=== PATIENT | male | born 1975 | race Caucasian/White ===

== ENCOUNTER 2016-07-06 18:21 | Emergency (ER) | payer SELFPAY ==
[2016-07-06 18:24] VITALS: BP 138/85; BMI 41.5
--- NOTE | 2016-07-06 19:03 | DR.GENAD ---
HPI - PCP Primary Care Physician: NFD - Complaint/Symptoms Chief Complaint Doctors Comments: Patient states that his umbilicus has been bleeding for several years serous fluid but now there is blood. He denies pain Chief Complaint:: PATIENT STATED THAT HIS BUTTON HAS BEEN BLEEDING TODAY - Source History Provided: Patient - Mode of Arrival Mode of Arrival: Ambulatory - Timing Onset of Chief Complaint: 07/06/16 PMH - PMH Past Medical History: No Past Surgical History: No Surgical History: No History - Family History History of Family Medical Conditions: Yes Family Medical History: Hypertension - Social History Does any household member use tobacco: No Alcohol Use: Rarely Do you use any recreational Drugs:: No Lives With: Family Lives Where: Home - infectious screening In the last 2 months have you had wt loss of >10#?: NO Have you had fever, night sweats or hemotysis?: No Have you traveled outside the country in the last 6 months?: No Isolation: Standard ROS - Review of Systems Eyes: No Symptoms Reported ENTM: No Symptoms Reported Respiratoy: No Symptoms Reported Cardiovascular: No Symptoms Reported Gastrointestinal/Abdominal: No Symptoms Reported Genitourinary: No Symptoms Reported Neurological: No Symptoms Reported Musculoskeletal: No Symptoms Reported Integumentary: No Symptoms Reported, Other (umbilicus drainage) Hematologic/Lymphatic: No Symptoms Reported Endocrine: No Symptoms Reported Psychiatric: No Symptoms Reported All Other Systems: Reviewed and Negative PE - Vital Signs Vitals: Temperature 98.2 F Pulse Rate 86 Respiratory Rate 20 Blood Pressure 138/85 O2 Sat by Pulse Oximetry 97 - General Limitations: No Limitations General Appearance: Alert, In No Apparent Distress - Head Head Exam: Normal Inspection, Atraumatic - Eyes Eye exam: Normal Appearance, PERRL, EOMI - ENT ENT Exam: Normal Exam External Ear Exam: Normal External Inspection TM/Canal Exam: Bilateral Normal Nose Exam: Normal Nose Exam Mouth Exam: Normal Inspection Throat Exam: Normal Inspection - Neck Neck Exam: Normal Inspection - Chest Chest Inspection: Normal Inspection - Respiratory Respiratory Exam: Normal Lung Sounds Bilat Respiratory Exam: Bilateral Clear to Auscultation - Cardiovascular Cardiovascular Exam: Regular Rate - Abdominal Exam Abdominal Exam: Normal Inspection Abdominal Tenderness: Other (drainage from umbilicus). negative: RUQ, RLQ, LUQ , LLQ, Epigastrium, Suprapubic, Diffuse, Mild, Moderate, Severe - Extremities Extremities Exam: Normal Inspection, Full ROM - Back Back Exam: Normal Inspection - Neurologic Neurological Exam: Alert, Oriented X3, CN II-XII Intact - Psychiatric Psychiatric Exam: Normal Affect, Normal Mood - Skin Skin Exam: Warm, Dry, Intact Procedures - Procedure Comments Procedures: Silver Nitrate sticks x 3 to umbilicus - Diagnosis Discharge Problem: Patent urachus - Discharge Plan Condition: Stable - Follow ups/Referrals Follow ups/Referrals: NFD,None [Primary Care Provider] - 3 days - Instructions
[2016-07-06] MEDS ORDERED: SILVER NITRATE STICK APPL TOP STA (19:07)
[2016-07-06] MEDS ORDERED: SILVER NITRATE STICK APPL ONE (19:08)
== END 2016-07-06 19:48 | disposition home or self-care (01) ==
LOC: ER 18:41
DX: Q64.4 Malformation of urachus (principal)
CPT/HCPCS: 99282

== ENCOUNTER 2020-11-05 21:40 | Inpatient (IN) ==
[2020-11-05 22:28] VITALS: BMI 50.2
[2020-11-06] MEDS ORDERED: TYLENOL 325 MG TAB PO ONE ×2 (01:21→21:27)
[2020-11-06 01:27] LABS: ABG BASE EXCESS 6.7 mmol/L (-2.0-2.0)
[2020-11-06 01:28] LABS: ABG ALLEN TEST POS; ABG HCO3 30.4 mmol/L (22-26)
[2020-11-06] MEDS: TYLENOL 325 MG TAB PO PRN ×2 (01:38→21:38)
--- NOTE | 2020-11-06 01:41 | DR.GENAD ---
HPI Time Seen Time Seen by Provider: 11/06/20 01:05 PCP Primary Care Physician: JAMAL HPI Comment HPI Comment: gradual symptoms, moderate Complaint/Symptoms Chief Complaint:: PT STATES" I TESTED POSITIVE MONDAY AT [facility] AND I'M BURING UP WITH FEVER AND A COUGH AND RUNNING OFF" Nurses notes reviewed Nurses Notes Review: Yes Source History Provided: Patient Mode of Arrival Mode of Arrival: Ambulatory Timing Onset of Chief Complaint: 11/05/20 PMH PMH Past Medical History: No Past Surgical History: No Surgical History: No History Family History History of Family Medical Conditions: Yes Family Medical History: Hypertension Social History Does patient currently use any type of tobacco product: No Have you used tobacco products in the last 12 months: No Type of Tobacco Use: None Does any household member use tobacco: No Alcohol Use: None Do you use any recreational Drugs:: No Lives With: Family Lives Where: Home Infectious screening In the last 2 months have you had wt loss of >10#?: NO Have you had fever, night sweats or hemotysis?: No Have you traveled outside the country in the last 6 months?: No Isolation: Droplet ROS Review of Systems Constitutional: Fever, Malaise and Fatigue Eyes: No Symptoms Reported ENTM: No Symptoms Reported Respiratoy: Non-Productive Cough and Short of Breath Cardiovascular: No Symptoms Reported Gastrointestinal/Abdominal: Diarrhea Genitourinary: No Symptoms Reported Neurological: No Symptoms Reported Musculoskeletal: No Symptoms Reported Integumentary: No Symptoms Reported Hematologic/Lymphatic: No Symptoms Reported Endocrine: No Symptoms Reported Psychiatric: No Symptoms Reported All Other Systems: Reviewed and Negative PE Vital Signs Vitals: Temperature 99.4 F Pulse Rate [Right] 95 Pulse Rate 100 Respiratory Rate 20 Blood Pressure [Left Arm] 134/75 Blood Pressure 128/79 O2 Sat by Pulse Oximetry 95 General Limitations: No Limitations General Appearance: Alert, In No Apparent Distress, Obese and Other (appears weak) Head Head Exam: Normal Inspection Eyes Eye exam: Normal Appearance ENT ENT Exam: Normal Exam External Ear Exam: Normal External Inspection TM/Canal Exam: Bilateral: Normal Nose Exam: Normal Nose Exam Mouth Exam: Normal Inspection Throat Exam: Normal Inspection Neck Neck Exam: Normal Inspection Chest Chest Inspection: Normal Inspection Respiratory Respiratory Exam: Normal Lung Sounds Bilat Respiratory Exam: Bilateral: Clear to Auscultation Cardiovascular Cardiovascular Exam: Regular Rate and Normal Rhythm Abdominal Exam Abdominal Exam: Normal Inspection, Normal Bowel Sounds and Soft Extremities Extremities Exam: Normal Inspection Back Back Exam: Normal Inspection Neurologic Neurological Exam: Alert and Oriented X3 Psychiatric Psychiatric Exam: Normal Affect and Normal Mood Skin Skin Exam: Warm, Dry, Intact and Normal Color MDM Differential Diagnosis Differential Diagnosis: covid COURSE Treatment Treatment: + covid, borderline hypoxia, will do protocol work-up for possible regen-cov, Reevaluation 1st: Unchanged (won't to leave, convinced get ABG hypoxic, does not qualify for regen-cov PO2 53, convinced to stay, will admit, give Remdesivir and decadron) 2nd: Unchanged (spoke with Broderick, will admit) Education/Counseling Education/Counseling: Patient, Education and Counseling Educated On: Treatment, Diagnosis and Prognosis ROR Labs Reviewed Result Diagrams: 11/06/20 01:46 11/06/20 01:46 Laboratory: WBC 8.7 X10^3/uL (3.6-10.0) 11/06/20 01:46 RBC 5.65 X10^6/uL (4.7-6.0) 11/06/20 01:46 Hgb 16.4 g/dL (13.5-18.0) 11/06/20 01:46 Hct 48.6 % (42.0-54.0) 11/06/20 01:46 MCV 86.0 fL (80.0-100.0) 11/06/20 01:46 MCH 29.0 pg (27.0-34.0) 11/06/20 01:46 MCHC 33.8 g/dL (33.0-35.0) 11/06/20 01:46 RDW 14.3 % (11.6-16.5) 11/06/20 01:46 Plt Count 142 X10^3/uL (150.0-450.0) L 11/06/20 01:46 MPV 8.0 fL (7.4-11.0) 11/06/20 01:46 Neut % (Auto) 85.1 % (42.0-75.0) H 11/06/20 01:46 Lymph % (Auto) 9.9 % (21.0-51.0) L 11/06/20 01:46 [place] % (Auto) 4.7 % (0.0-13.0) 11/06/20 01:46 Eos % (Auto) 0.0 % (0.9-2.9) L 11/06/20 01:46 Baso % (Auto) 0.3 % (0.2-1.0) 11/06/20 01:46 Neut # (Auto) 7.4 x10^3/uL (2.2-4.8) H 11/06/20 01:46 Lymph # (Auto) 0.9 X10^3/uL (1.3-2.9) L 11/06/20 01:46 [place] # (Auto) 0.4 x10^3/uL (0.3-0.8) 11/06/20 01:46 Eos # (Auto) 0.0 x10^3/uL (0.0-0.2) 11/06/20 01:46 Baso # (Auto) 0.0 X10^3/uL (0.0-0.1) 11/06/20 01:46 Absolute Nucleated RBC 0.1 /100WBC 11/06/20 01:46 D-Dimer 0.67 ug/ml (0.0-0.57) H* 11/06/20 01:46 Sample Site Lrad 11/06/20 01:20 ABG pH 7.500 (7.35-7.45) H 11/06/20 01:20 ABG pCO2 39.0 mmHg (35.0-45.0) 11/06/20 01:20 ABG pO2 53.0 mmHg (80.0-100.0) L 11/06/20 01:20 ABG HCO3 30.4 mmol/L (22-26) H* 11/06/20 01:20 ABG O2 Saturation 90.0 % (90-100) 11/06/20 01:20 ABG Base Excess 6.7 mmol/L (-2.0-2.0) H 11/06/20 01:20 Florentino Test Pos 11/06/20 01:20 A-a Gradient 48.0 mmHg 11/06/20 01:20 FiO2 21.0 11/06/20 01:20 Blood Gas Comments Margaret well ah 11/06/20 01:20 Sodium 136 mmol/L (136-145) 11/06/20 01:46 Corrected Sodium 137 mmol/L (136-145) 11/06/20 01:46 Potassium 3.8 mmol/L (3.5-5.1) 11/06/20 01:46 Chloride 97 mmol/L (98-107) L 11/06/20 01:46 Carbon Dioxide 27.4 mmol/L (21-32) 11/06/20 01:46 BUN 15 mg/dL (7-18) 11/06/20 01:46 Creatinine 1.23 mg/dL (0.70-1.30) 11/06/20 01:46 Est GFR (MDRD) Af Amer > 60 (>60) 11/06/20 01:46 Est GFR (MDRD) Non-Af > 60 (>60) 11/06/20 01:46 Glucose 121 mg/dL (65-99) H 11/06/20 01:46 Calcium 7.9 mg/dL (8.5-10.1) L 11/06/20 01:46 Corrected Calcium TNP 11/06/20 01:46 Ferritin 425 ng/mL (26-388) H 11/06/20 01:46 Total Bilirubin 0.60 mg/dL (0.2-1.0) 11/06/20 01:46 AST 81 Units/L (15-37) H 11/06/20 01:46 ALT 80 Units/L (12-78) H 11/06/20 01:46 Alkaline Phosphatase 86 Units/L (46-116) 11/06/20 01:46 Creatine Kinase 308 Units/L (39-308) 11/06/20 01:46 CK-MB (CK-2) < 1.0 ng/mL (0-4.0) 11/06/20 01:46 CK/CKMB % Calc 0.3 % (<4) 11/06/20 01:46 Troponin I < 0.02 ng/mL (0-1.5) 11/06/20 01:46 C-Reactive Protein 54.60 mg/L (0-3.0) H 11/06/20 01:46 B-Natriuretic Peptide < 5.0 pg/mL (0-79) 11/06/20 01:46 Total Protein 7.7 g/dL (6.4-8.2) 11/06/20 01:46 Albumin 3.5 g/dL (3.4-5.0) 11/06/20 01:46 Globulin 4.2 g/dL (2.5-4.5) 11/06/20 01:46 Albumin/Globulin Ratio 0.8 Ratio (1.1-2.1) L 11/06/20 01:46 XRAY XRAY Interpreted by: Radiologist X-ray Results: NAP in chest EKG Rate: 111 Rhythm: ST Block: None Hypertrophy: None ST: Normal Opioid Opioid Risk Tool Age (Sylvester box if 16-45): Yes History of Preadolescent Sexual Abuse: No Total: 1 Total Score Risk Category: Low Risk Copyright: Brenden RODARTE predicting aberrant behaviors Diagnosis Discharge Problem: COVID-19, Hypoxia Pneumonia Qualifiers: Pneumonia type: due to unspecified organism Laterality: unspecified laterality Lung location: unspecified part of lung Qualified Code(s): J18.9 - Pneumonia, unspecified organism
[2020-11-06] MEDS ORDERED: DECADRON INJ IVP ONE (01:48)
[2020-11-06] MEDS ORDERED: REMDESIVIR 200 MG in NS 100 ML IV 140 ML IV ONE (01:49)
[2020-11-06 01:54] LABS: BASOPHILS % (AUTO) 0.3 % (0.2-1.0); HEMATOCRIT 48.6 % (42.0-54.0); HEMOGLOBIN 16.4 g/dL (13.5-18.0); LYMPHOCYTES # (AUTO) 0.9 X10^3/uL (1.3-2.9); LYMPHOCYTES % (AUTO) 9.9 % (21.0-51.0); MEAN CORPUSCULAR HGB CONC 33.8 g/dL (33.0-35.0); MONOCYTES # (AUTO) 0.4 x10^3/uL (0.3-0.8); MONOCYTES % (AUTO) 4.7 % (0.0-13.0); NEUTROPHILS # (AUTO) 7.4 x10^3/uL (2.2-4.8); NEUTROPHILS % (AUTO) 85.1 % (42.0-75.0); PLATELET COUNT 142 X10^3/uL (150.0-450.0); RED BLOOD COUNT 5.65 X10^6/uL (4.7-6.0); RED CELL DISTRIBUTION WIDTH 14.3 % (11.6-16.5); WHITE BLOOD COUNT 8.7 X10^3/uL (3.6-10.0)
[2020-11-06] MEDS ORDERED: DECADRON INJ ONE (02:04)
[2020-11-06] MEDS ORDERED: NS 250 ML IV 250 ML IV ONE ×2 (02:05→15:03)
[2020-11-06] MEDS ORDERED: REMDESIVIR IV ONE (02:05)
[2020-11-06 02:06] LABS: ALANINE AMINOTRANSFERASE 80 Units/L (12-78); ALBUMIN 3.5 g/dL (3.4-5.0); ALKALINE PHOSPHATASE 86 Units/L (46-116); ASPARTATE AMINO TRANSFERASE 81 Units/L (15-37); BLOOD UREA NITROGEN 15 mg/dL (7-18); CALCIUM 7.9 mg/dL (8.5-10.1); CARBON DIOXIDE 27.4 mmol/L (21-32); CHLORIDE 97 mmol/L (98-107); COR NA(FOR HYPERGLY) 137 mmol/L (136-145); CREATININE 1.23 mg/dL (0.70-1.30); SODIUM 136 mmol/L (136-145); TOTAL PROTEIN 7.7 g/dL (6.4-8.2); eGFR NON BLACK RACES > 60 (>60)
[2020-11-06 02:19] LABS: CKMB % 0.3 % (<4); CREATINE KINASE 308 Units/L (39-308); CREATINE KINASE MB < 1.0 ng/mL (0-4.0); TROPONIN I < 0.02 ng/mL (0-1.5)
--- NOTE | 2020-11-06 05:34 | RAD ---
PROCEDURE: Chest X-ray 1 View .HISTORY: COVID+ .TECHNIQUE: AP view .COMPARISON: None .TECHNICAL QUALITY: Satisfactory .FINDINGS:Normal size heart .Mediastinum and hilar regions show no masses or lymphadenopathy .Normal central vascularity .No pulmonary consolidation, masses, pleural fluid, or pneumothorax .No acute bony abnormality .IMPRESSION:No active cardiopulmonary disease .Electronically signed by: Jonathan Rivas (Nov 06, 2020 05:31:50)
[2020-11-06] MEDS ORDERED: PULMICORT NEB TX 0.5 MG NEB SCH (12:56)
[2020-11-06] MEDS ORDERED: PERIACTIN TAB 4 MG PO PRN (12:56)
[2020-11-06] MEDS ORDERED: VITAMIN D (1.25MG) PO SCH (12:56)
[2020-11-06] MEDS ORDERED: VITAMIN A PO SCH (12:56)
[2020-11-06] MEDS ORDERED: BROVANA IN SCH (12:56)
[2020-11-06] MEDS ORDERED: PHARMACY CONSULT - IVERMECTIN XX SCH (12:56)
[2020-11-06] MEDS ORDERED: PHARMACY CONSULT - LOVENOX XX SCH (12:56)
[2020-11-06 13:41] LABS: BASOPHILS % (AUTO) 0.1 % (0.2-1.0); HEMATOCRIT 47.3 % (42.0-54.0); HEMOGLOBIN 15.9 g/dL (13.5-18.0); LYMPHOCYTES # (AUTO) 0.7 X10^3/uL (1.3-2.9); LYMPHOCYTES % (AUTO) 13.6 % (21.0-51.0); MEAN CORPUSCULAR HEMOGLOBIN 28.8 pg (27.0-34.0); MEAN CORPUSCULAR HGB CONC 33.6 g/dL (33.0-35.0); MEAN CORPUSCULAR VOLUME 85.5 fL (80.0-100.0); MEAN PLATELET VOLUME 8.4 fL (7.4-11.0); MONOCYTES # (AUTO) 0.3 x10^3/uL (0.3-0.8); MONOCYTES % (AUTO) 5.5 % (0.0-13.0); NEUTROPHILS % (AUTO) 80.8 % (42.0-75.0); PLATELET COUNT 171 X10^3/uL (150.0-450.0); RED BLOOD COUNT 5.54 X10^6/uL (4.7-6.0); RED CELL DISTRIBUTION WIDTH 14.5 % (11.6-16.5)
[2020-11-06] MEDS ORDERED: LOVENOX INJ 150 MG SYR SC SCH (14:00)
[2020-11-06 14:20] LABS: ALANINE AMINOTRANSFERASE 139 Units/L (12-78); ALBUMIN 3.2 g/dL (3.4-5.0); ALKALINE PHOSPHATASE 88 Units/L (46-116); ASPARTATE AMINO TRANSFERASE 143 Units/L (15-37); BLOOD UREA NITROGEN 17 mg/dL (7-18); CHLORIDE 98 mmol/L (98-107); COR CA(FOR HYPOALB) 8.6 mg/dL (8.5-10.1); COR NA(FOR HYPERGLY) 137 mmol/L (136-145); CREATININE 1.15 mg/dL (0.70-1.30); SODIUM 136 mmol/L (136-145); TOTAL PROTEIN 7.5 g/dL (6.4-8.2); TROPONIN I < 0.02 ng/mL (0-1.5); eGFR NON BLACK RACES > 60 (>60)
[2020-11-06] MEDS ORDERED: CYTOTEC ONE ×2 (15:00→17:18)
[2020-11-06] MEDS ORDERED: THIAMINE HCL INJ ONE ×2 (15:00→20:35)
[2020-11-06] MEDS ORDERED: LOVENOX INJ 120 MG SYR SC ONE (15:00)
[2020-11-06] MEDS ORDERED: SOLU-Medrol 125 MG VIAL ONE ×2 (15:00→20:35)
[2020-11-06] MEDS ORDERED: LIPITOR TAB 80 MG ONE (15:01)
[2020-11-06] MEDS ORDERED: ZINC SULFATE ONE ×2 (15:01→20:35)
[2020-11-06] MEDS ORDERED: VITAMIN D3 125 mcg (5,000 UNITS) ONE (15:02)
[2020-11-06] MEDS ORDERED: ZITHROMAX INJ 500 MG VIAL IV ONE (15:02)
[2020-11-06] MEDS ORDERED: NS 100 ML IV 100 ML ONE ×3 (15:02→20:36)
[2020-11-06] MEDS ORDERED: LOVENOX INJ 30 MG SYR SC ONE (15:02)
[2020-11-06] MEDS ORDERED: NS 1000 ML 1,000 ML ONE (15:03)
[2020-11-06] MEDS ORDERED: ASCORBIC ACID INJ MULTI-DOSE VIAL IV ONE (15:04)
[2020-11-06] MEDS ORDERED: PEPCID 20 MG IV PREMIX* 40 MG/100 ML BAG IV ONE (15:04)
[2020-11-06] MEDS: ASCORBIC ACID INJ MULTI-DOSE VIAL 1,500 MG in NS 100 ML IV 100 ML IV SCH ×3 (16:10→21:22)
[2020-11-06] MEDS: CYTOTEC PO SCH ×4 (16:12→21:24)
[2020-11-06] MEDS: LIPITOR TAB 80 MG PO SCH (16:12)
[2020-11-06] MEDS: NS 1000 ML 1,000 ML IV SCH (16:13)
[2020-11-06] MEDS: PEPCID TAB 40 MG PO SCH ×2 (16:13→21:26)
[2020-11-06] MEDS: SOLU-Medrol 125 MG VIAL IVP SCH ×3 (16:14→21:23)
[2020-11-06] MEDS: PROTONIX INJ 40 MG VIAL IVP SCH ×2 (16:14→21:24)
[2020-11-06] MEDS: THIAMINE HCL INJ IVP SCH ×2 (16:15→21:23)
[2020-11-06] MEDS: ZINC SULFATE PO SCH ×2 (16:16→21:23)
[2020-11-06] MEDS: ZITHROMAX INJ 500 MG VIAL 500 MG in D5W 250 ML IV 250 ML IV SCH (16:16)
[2020-11-06] MEDS ORDERED: BROVANA ONE (19:19)
[2020-11-06] MEDS ORDERED: PULMICORT NEB TX 0.5 MG NEB ONE (19:19)
[2020-11-06] MEDS: BROVANA IN SCH (20:28)
[2020-11-06] MEDS: PULMICORT NEB TX 0.5 MG NEB SCH (20:28)
[2020-11-06] MEDS ORDERED: MELATONIN ONE (20:35)
[2020-11-06] MEDS ORDERED: PROTONIX INJ 40 MG VIAL ONE (20:36)
[2020-11-06] MEDS: MELATONIN PO SCH (21:24)
[2020-11-06] MEDS ORDERED: PEPCID TAB 40 MG ONE (21:25)
[2020-11-07] MEDS ORDERED: NS 100 ML IV 100 ML ONE ×2 (03:02→16:40)
[2020-11-07] MEDS: ASCORBIC ACID INJ MULTI-DOSE VIAL 1,500 MG in NS 100 ML IV 100 ML IV SCH ×4 (03:05→21:00)
[2020-11-07] MEDS ORDERED: SOLU-Medrol 125 MG VIAL ONE ×2 (03:29→08:13)
[2020-11-07] MEDS: SOLU-Medrol 125 MG VIAL IVP SCH ×4 (03:30→21:00)
[2020-11-07] MEDS ORDERED: NS 1000 ML 1,000 ML ONE (06:21)
[2020-11-07] MEDS: LOVENOX INJ 150 MG SYR SC SCH ×3 (06:28→21:00)
[2020-11-07] MEDS: NS 1000 ML 1,000 ML IV SCH ×2 (06:30→12:55)
[2020-11-07] MEDS ORDERED: PEPCID TAB 40 MG ONE (08:13)
[2020-11-07] MEDS ORDERED: NS 250 ML IV 250 ML IV ONE ×2 (08:14→08:20)
[2020-11-07] MEDS ORDERED: NS 50 ML IV 50 ML IV ONE ×2 (08:14→13:22)
[2020-11-07] MEDS ORDERED: REMDESIVIR IV ONE (08:14)
[2020-11-07] MEDS ORDERED: ASCORBIC ACID INJ MULTI-DOSE VIAL IV ONE ×2 (08:14→13:22)
[2020-11-07] MEDS ORDERED: ZITHROMAX INJ 500 MG VIAL IV ONE (08:20)
[2020-11-07] MEDS ORDERED: THIAMINE HCL INJ ONE (08:20)
[2020-11-07] MEDS ORDERED: ZINC SULFATE ONE (08:24)
[2020-11-07] MEDS ORDERED: IVERMECTIN ONE (08:53)
[2020-11-07] MEDS ORDERED: PEPCID 20 MG IV PREMIX* 20 MG/50 ML BAG IV ONE (08:55)
[2020-11-07] MEDS: CYTOTEC PO SCH (08:57)
[2020-11-07] MEDS: REMDESIVIR 100 MG in NS 250 ML IV 250 ML IV SCH (08:58)
[2020-11-07] MEDS ORDERED: IVERMECTIN PO SCH (09:00)
[2020-11-07] MEDS: PEPCID TAB 40 MG PO SCH ×2 (09:02→21:00)
[2020-11-07] MEDS: THIAMINE HCL INJ IVP SCH ×2 (09:05→21:00)
[2020-11-07] MEDS: ZINC SULFATE PO SCH ×2 (09:06→21:00)
[2020-11-07] MEDS ORDERED: LIPITOR TAB 80 MG ONE (09:07)
[2020-11-07] MEDS ORDERED: PROTONIX INJ 40 MG VIAL ONE (09:07)
[2020-11-07] MEDS: LIPITOR TAB 80 MG PO SCH (09:09)
[2020-11-07] MEDS: ZITHROMAX INJ 500 MG VIAL 500 MG in D5W 250 ML IV 250 ML IV SCH (09:13)
[2020-11-07] MEDS: PROTONIX INJ 40 MG VIAL IVP SCH (09:13)
[2020-11-07] MEDS: BROVANA IN SCH ×2 (10:05→21:00)
[2020-11-07] MEDS: PULMICORT NEB TX 0.5 MG NEB SCH ×2 (10:05→21:00)
[2020-11-07 10:51] LABS: BASOPHILS % (AUTO) 0.3 % (0.2-1.0); HEMATOCRIT 49.3 % (42.0-54.0); HEMOGLOBIN 16.4 g/dL (13.5-18.0); LYMPHOCYTES # (AUTO) 1.4 X10^3/uL (1.3-2.9); LYMPHOCYTES % (AUTO) 16.9 % (21.0-51.0); MEAN CORPUSCULAR HEMOGLOBIN 28.8 pg (27.0-34.0); MEAN CORPUSCULAR HGB CONC 33.3 g/dL (33.0-35.0); MEAN CORPUSCULAR VOLUME 86.6 fL (80.0-100.0); MEAN PLATELET VOLUME 8.4 fL (7.4-11.0); MONOCYTES # (AUTO) 0.4 x10^3/uL (0.3-0.8); MONOCYTES % (AUTO) 5.3 % (0.0-13.0); NEUTROPHILS # (AUTO) 6.2 x10^3/uL (2.2-4.8); NEUTROPHILS % (AUTO) 77.5 % (42.0-75.0); PLATELET COUNT 196 X10^3/uL (150.0-450.0); RED BLOOD COUNT 5.69 X10^6/uL (4.7-6.0); RED CELL DISTRIBUTION WIDTH 14.3 % (11.6-16.5)
[2020-11-07 11:00] LABS: ALANINE AMINOTRANSFERASE 170 Units/L (12-78); ALBUMIN 3.3 g/dL (3.4-5.0); ALKALINE PHOSPHATASE 82 Units/L (46-116); ASPARTATE AMINO TRANSFERASE 129 Units/L (15-37); BLOOD UREA NITROGEN 19 mg/dL (7-18); CALCIUM 8.2 mg/dL (8.5-10.1); CARBON DIOXIDE 28.7 mmol/L (21-32); CHLORIDE 100 mmol/L (98-107); COR CA(FOR HYPOALB) 8.8 mg/dL (8.5-10.1); COR NA(FOR HYPERGLY) 142 mmol/L (136-145); CREATININE 1.28 mg/dL (0.70-1.30); SODIUM 139 mmol/L (136-145); TOTAL PROTEIN 7.6 g/dL (6.4-8.2); eGFR NON BLACK RACES > 60 (>60)
[2020-11-07] MEDS ORDERED: HumuLIN R SUBCUT PRN (12:22)
[2020-11-07] MEDS ORDERED: HumuLIN R ONE (12:49)
[2020-11-07] MEDS ORDERED: SOLU-Medrol 40 MG VIAL ONE (13:22)
--- NOTE | 2020-11-07 16:34 | PCM.PROG ---
Progress Note Progress Note for Day of Date of Exam: 11/07/20 Subjective Subjective: Patient seen at bedside, no acute events overnight. Patient states he feels a lot better. He is currently being treated for covid-19 infection. He is on 4L NC. He reports some cough. Denies fever or chills. Denies N/V/D. Labs: WBC: 8 Hgb 16.4 Plt 171 BUN/Cr: 19/1.28 Glucose 219 D-dimer 0.67 CRP: 21.50 AST/ALT: 129/170 AB.50/39/53/30 on RA COVID + CXR: no acute process Plan: continue COVID-19 protocol. Continue IV solumedrol, Remdesivir, will switch Azithromycin to Levaquin. Order CTA to rule out PE. Wean O2 as tolerated to keep sats >92%. Continue nebs and pulmicort. Continue vitamin support. Monitor AM labs/imaging. Patient needs a sleep study outpatient. Time spent for clinical assessment, reviewing labs/imaging, physical exam, decision making and documentation greater than 45 mins. Past Medical Family Social History Past Med/Fam/Surg Hx: No changes since H&P Allergies: Allergies Penicillins Allergy (Verified 07/07/19 07:45) ceftriaxone [From Rocephin] Adverse Reaction (Verified 07/07/19 12:12) Review of Systems ROS: No change since H&P Vital Signs and I&O's Vital Signs: Temperature 98.0 F Pulse Rate [Right] 100 Pulse Rate 92 Respiratory Rate 24 Blood Pressure [Left Arm] 129/79 Blood Pressure 128/79 O2 Sat by Pulse Oximetry 90 Intake and Output: Intake & Output 11/04/20 11/05/20 11/06/20 11/07/20 23:59 23:59 23:59 23:59 Intake Total 1505 / 1505 310 / 310 Balance 1505 / 1505 310 / 310 Physical Exam Oriented: Normal Eyes: Normal Ear: Normal Nose: Normal Throat: Normal Respiratory: Generalized and Diminished Cardiovascular: Normal Auscultation: Bowel Sounds: Normal Palpation: Normal Tenderness: Normal Skin: Normal Musculoskeletal: Normal Psychiatric: Normal Affect: Normal Speech Pattern: Clear and Appropriate Laboratory and Diagnostics Result Diagrams: 11/07/20 10:34 11/07/20 10:34 Labs: Laboratory WBC 8.0 X10^3/uL (3.6-10.0) 11/07/20 10:34 RBC 5.69 X10^6/uL (4.7-6.0) 11/07/20 10:34 Hgb 16.4 g/dL (13.5-18.0) 11/07/20 10:34 Hct 49.3 % (42.0-54.0) 11/07/20 10:34 MCV 86.6 fL (80.0-100.0) 11/07/20 10:34 MCH 28.8 pg (27.0-34.0) 11/07/20 10:34 MCHC 33.3 g/dL (33.0-35.0) 11/07/20 10:34 RDW 14.3 % (11.6-16.5) 11/07/20 10:34 Plt Count 196 X10^3/uL (150.0-450.0) 11/07/20 10:34 MPV 8.4 fL (7.4-11.0) 11/07/20 10:34 Neut % (Auto) 77.5 % (42.0-75.0) H 11/07/20 10:34 Lymph % (Auto) 16.9 % (21.0-51.0) L 11/07/20 10:34 [place] % (Auto) 5.3 % (0.0-13.0) 11/07/20 10:34 Eos % (Auto) 0.0 % (0.9-2.9) L 11/07/20 10:34 Baso % (Auto) 0.3 % (0.2-1.0) 11/07/20 10:34 Neut # (Auto) 6.2 x10^3/uL (2.2-4.8) H 11/07/20 10:34 Lymph # (Auto) 1.4 X10^3/uL (1.3-2.9) 11/07/20 10:34 [place] # (Auto) 0.4 x10^3/uL (0.3-0.8) 11/07/20 10:34 Eos # (Auto) 0.0 x10^3/uL (0.0-0.2) 11/07/20 10:34 Baso # (Auto) 0.0 X10^3/uL (0.0-0.1) 11/07/20 10:34 Absolute Nucleated RBC 0.1 /100WBC 11/07/20 10:34 D-Dimer 0.67 ug/ml (0.0-0.57) H* 11/06/20 01:46 Sample Site Lrad 11/06/20 01:20 ABG pH 7.500 (7.35-7.45) H 11/06/20 01:20 ABG pCO2 39.0 mmHg (35.0-45.0) 11/06/20 01:20 ABG pO2 53.0 mmHg (80.0-100.0) L 11/06/20 01:20 ABG HCO3 30.4 mmol/L (22-26) H* 11/06/20 01:20 ABG O2 Saturation 90.0 % (90-100) 11/06/20 01:20 ABG Base Excess 6.7 mmol/L (-2.0-2.0) H 11/06/20 01:20 Florentino Test Pos 11/06/20 01:20 A-a Gradient 48.0 mmHg 11/06/20 01:20 FiO2 21.0 11/06/20 01:20 Blood Gas Comments Margaret well ah 11/06/20 01:20 Sodium 139 mmol/L (136-145) 11/07/20 10:34 Corrected Sodium 142 mmol/L (136-145) 11/07/20 10:34 Potassium 3.7 mmol/L (3.5-5.1) 11/07/20 10:34 Chloride 100 mmol/L (98-107) 11/07/20 10:34 Carbon Dioxide 28.7 mmol/L (21-32) 11/07/20 10:34 BUN 19 mg/dL (7-18) H 11/07/20 10:34 Creatinine 1.28 mg/dL (0.70-1.30) 11/07/20 10:34 Est GFR (MDRD) Af Amer > 60 (>60) 11/07/20 10:34 Est GFR (MDRD) Non-Af > 60 (>60) 11/07/20 10:34 Glucose 218 mg/dL (65-99) H 11/07/20 10:34 POC Glucose (mg/dL) 219 mg/dL (65-99) H 11/07/20 12:04 Calcium 8.2 mg/dL (8.5-10.1) L 11/07/20 10:34 Corrected Calcium 8.8 mg/dL (8.5-10.1) 11/07/20 10:34 Ferritin 425 ng/mL (26-388) H 11/06/20 01:46 Total Bilirubin 0.50 mg/dL (0.2-1.0) 11/07/20 10:34 AST 129 Units/L (15-37) H 11/07/20 10:34 ALT 170 Units/L (12-78) H 11/07/20 10:34 Alkaline Phosphatase 82 Units/L (46-116) 11/07/20 10:34 Creatine Kinase 308 Units/L (39-308) 11/06/20 01:46 CK-MB (CK-2) < 1.0 ng/mL (0-4.0) 11/06/20 01:46 CK/CKMB % Calc 0.3 % (<4) 11/06/20 01:46 Troponin I < 0.02 ng/mL (0-1.5) 11/06/20 13:12 C-Reactive Protein 21.50 mg/L (0-3.0) H 11/07/20 10:34 B-Natriuretic Peptide < 5.0 pg/mL (0-79) 11/06/20 01:46 Total Protein 7.6 g/dL (6.4-8.2) 11/07/20 10:34 Albumin 3.3 g/dL (3.4-5.0) L 11/07/20 10:34 Globulin 4.3 g/dL (2.5-4.5) 11/07/20 10:34 Albumin/Globulin Ratio 0.8 Ratio (1.1-2.1) L 11/07/20 10:34 Plan (1) Acute respiratory failure with hypoxia: Status: Acute (2) Pneumonia due to COVID-19 virus: Status: Acute
--- NOTE | 2020-11-07 18:04 | CT ---
HISTORYCOVID, HYPOXIASTUDYCTA CHESTCOMPARISONChest radiograph, November 06, 2020TECHNIQUEAxial CT images of the chest were obtained after the administration of 75 mL Omnipaque 350 IV contrast utilizing a CTA protocol. 3D MIPS were performed and reviewed for further evaluation.Radiation dose: 752.50 mGy-cm total DLPFINDINGSTrace pericardial effusion.No mediastinal or hilar lymphadenopathy.Aorta is normal in caliber without dissection.Pulmonary arteries are normal in caliber without filling defects to suggest a pulmonary embolus.Airways are widely patent.Thyroid appears normal.No pleural effusion.Diffuse bilateral, largely peripheral, airspace opacities throughout the lung parenchyma.No pneumothorax.No concerning lung parenchymal lesion identified.Imaged portion of the upper abdomen is unremarkable.No acute osseous abnormality.IMPRESSION1. Diffuse bilateral, largely peripheral, airspace opacities throughout the lung parenchyma. Findings are consistent with the given history of a COVID-19 respiratory infection.2. No pulmonary embolus identified.Electronically signed by: Leoncio Montoya (Nov 07, 2020 18:02:25)
[2020-11-07] MEDS ORDERED: SNACK - Diabetic Appropriate PO SCH (20:00)
[2020-11-07] MEDS ORDERED: LOVENOX INJ 150 MG SYR SC SCH (21:00)
[2020-11-07] MEDS: MELATONIN PO SCH (21:00)
[2020-11-08] MEDS: ASCORBIC ACID INJ MULTI-DOSE VIAL 1,500 MG in NS 100 ML IV 100 ML IV SCH ×4 (03:14→20:32)
[2020-11-08] MEDS: SOLU-Medrol 125 MG VIAL IVP SCH ×4 (03:15→20:34)
[2020-11-08] MEDS: BROVANA IN SCH ×2 (09:25→21:25)
[2020-11-08] MEDS: PULMICORT NEB TX 0.5 MG NEB SCH ×2 (09:25→21:25)
[2020-11-08] MEDS: LEVAQUIN PREMIX IV 750 MG 750 MG/150 ML BAG IV SCH (10:05)
[2020-11-08] MEDS: LOVENOX INJ 150 MG SYR SC SCH ×2 (10:05→20:32)
[2020-11-08] MEDS: REMDESIVIR 100 MG in NS 250 ML IV 250 ML IV SCH (10:06)
[2020-11-08] MEDS: VITAMIN D3 125 mcg (5,000 UNITS) PO SCH (10:06)
[2020-11-08] MEDS: ZINC SULFATE PO SCH ×2 (10:06→20:34)
[2020-11-08] MEDS: THIAMINE HCL INJ IVP SCH (10:06)
[2020-11-08] MEDS: PEPCID TAB 40 MG PO SCH ×2 (10:06→20:33)
[2020-11-08] MEDS: VITAMIN A PO SCH (10:06)
[2020-11-08] MEDS: LIPITOR TAB 80 MG PO SCH (10:07)
[2020-11-08 11:27] LABS: BASOPHILS % (AUTO) 0.1 % (0.2-1.0); HEMOGLOBIN 15.4 g/dL (13.5-18.0); LYMPHOCYTES # (AUTO) 0.9 X10^3/uL (1.3-2.9); LYMPHOCYTES % (AUTO) 5.7 % (21.0-51.0); MEAN CORPUSCULAR HEMOGLOBIN 28.2 pg (27.0-34.0); MEAN CORPUSCULAR HGB CONC 32.8 g/dL (33.0-35.0); MEAN CORPUSCULAR VOLUME 86.2 fL (80.0-100.0); MONOCYTES # (AUTO) 0.8 x10^3/uL (0.3-0.8); NEUTROPHILS # (AUTO) 14.2 x10^3/uL (2.2-4.8); NEUTROPHILS % (AUTO) 89.2 % (42.0-75.0); PLATELET COUNT 229 X10^3/uL (150.0-450.0); RED BLOOD COUNT 5.45 X10^6/uL (4.7-6.0); RED CELL DISTRIBUTION WIDTH 14.4 % (11.6-16.5); WHITE BLOOD COUNT 15.9 X10^3/uL (3.6-10.0)
[2020-11-08 11:38] LABS: ALANINE AMINOTRANSFERASE 132 Units/L (12-78); ALBUMIN 3.2 g/dL (3.4-5.0); ALKALINE PHOSPHATASE 77 Units/L (46-116); ASPARTATE AMINO TRANSFERASE 89 Units/L (15-37); BLOOD UREA NITROGEN 16 mg/dL (7-18); CARBON DIOXIDE 28.5 mmol/L (21-32); CHLORIDE 102 mmol/L (98-107); COR CA(FOR HYPOALB) 8.6 mg/dL (8.5-10.1); COR NA(FOR HYPERGLY) 143 mmol/L (136-145); CREATININE 1.07 mg/dL (0.70-1.30); SODIUM 141 mmol/L (136-145); eGFR NON BLACK RACES > 60 (>60)
[2020-11-08] MEDS: NS 1000 ML 1,000 ML IV SCH (13:27)
[2020-11-08] MEDS ORDERED: MAGNESIUM SULFATE 1 GRAM/100 mL PREMIX 1 GM/100 ML BAG IV PRN (13:46)
[2020-11-08] MEDS ORDERED: POTASSIUM CHL 40 MEQ/NS 0.45% 500 ML IV PRN (13:46)
[2020-11-08] MEDS ORDERED: MICRO K EXTEN CAP 10 MEQ PO PRN (13:46)
[2020-11-08] MEDS ORDERED: POTASSIUM CHL 60 MEQ/NS 0.45% 500 ML IV PRN (13:46)
[2020-11-08] MEDS ORDERED: POTASSIUM CHLORIDE LIQ 20 MEQ UDC PO PRN (13:46)
[2020-11-08] MEDS ORDERED: K-RIDER 10 MEQ/NS 100 ML 10 MEQ/100 ML BAG IV PRN (13:46)
[2020-11-08] MEDS ORDERED: KLOR-CON PO PRN (13:46)
--- NOTE | 2020-11-08 15:33 | PCM.PROG ---
Progress Note Progress Note for Day of Date of Exam: 11/08/20 Subjective Subjective: Patient seen at bedside, no acute events overnight. He states he feels better. He is on 4L NC. He reports some cough. Denies fever or chills. He reports good appetite. He has been ambulating to the bathroom. Labs: WBC: 15.9 Hgb 15.4 Plt 229 K: 3.4 BUN/Cr: 16/1.07 Glucose 219 D-dimer 0.67 CRP: 21.50 AB.50/39/53/30 on RA COVID + CTA: no PE, diffuse bilateral opacities Plan: continue COVID-19 protocol. Continue IV solumedrol, Remdesivir and Levaquin. Wean O2 as tolerated to keep sats >92%. Continue nebs and pulmicort. Continue vitamin support. Replace K. Monitor AM labs/imaging. Patient needs a sleep study outpatient. Time spent for clinical assessment, reviewing labs/imaging, physical exam, decision making and documentation greater than 45 mins. Past Medical Family Social History Past Med/Fam/Surg Hx: No changes since H&P Allergies: Allergies Penicillins Allergy (Verified 07/07/19 07:45) ceftriaxone [From Rocephin] Adverse Reaction (Verified 07/07/19 12:12) Review of Systems ROS: No change since H&P Vital Signs and I&O's Vital Signs: Temperature 98.0 F Pulse Rate [Right] 95 Pulse Rate 84 Respiratory Rate 20 Blood Pressure [Left Arm] 110/68 Blood Pressure 128/79 O2 Sat by Pulse Oximetry 94 Intake and Output: Intake & Output 11/05/20 11/06/20 11/07/20 11/08/20 23:59 23:59 23:59 23:59 Intake Total 1505 / 1505 1030 / 1030 347 / 347 Balance 1505 / 1505 1030 / 1030 347 / 347 Physical Exam Oriented: Normal Eyes: Normal Ear: Normal Nose: Normal Throat: Normal Respiratory: Generalized and Diminished Cardiovascular: Normal Auscultation: Bowel Sounds: Normal Tenderness: Normal Skin: Normal Musculoskeletal: Normal Psychiatric: Normal Affect: Normal Speech Pattern: Clear and Appropriate Laboratory and Diagnostics Result Diagrams: 11/08/20 11:04 11/08/20 11:04 Labs: Laboratory WBC 15.9 X10^3/uL (3.6-10.0) H 11/08/20 11:04 RBC 5.45 X10^6/uL (4.7-6.0) 11/08/20 11:04 Hgb 15.4 g/dL (13.5-18.0) 11/08/20 11:04 Hct 47.0 % (42.0-54.0) 11/08/20 11:04 MCV 86.2 fL (80.0-100.0) 11/08/20 11:04 MCH 28.2 pg (27.0-34.0) 11/08/20 11:04 MCHC 32.8 g/dL (33.0-35.0) L 11/08/20 11:04 RDW 14.4 % (11.6-16.5) 11/08/20 11:04 Plt Count 229 X10^3/uL (150.0-450.0) 11/08/20 11:04 MPV 8.0 fL (7.4-11.0) 11/08/20 11:04 Neut % (Auto) 89.2 % (42.0-75.0) H 11/08/20 11:04 Lymph % (Auto) 5.7 % (21.0-51.0) L 11/08/20 11:04 [place] % (Auto) 5.0 % (0.0-13.0) 11/08/20 11:04 Eos % (Auto) 0.0 % (0.9-2.9) L 11/08/20 11:04 Baso % (Auto) 0.1 % (0.2-1.0) L 11/08/20 11:04 Neut # (Auto) 14.2 x10^3/uL (2.2-4.8) H 11/08/20 11:04 Lymph # (Auto) 0.9 X10^3/uL (1.3-2.9) L 11/08/20 11:04 [place] # (Auto) 0.8 x10^3/uL (0.3-0.8) 11/08/20 11:04 Eos # (Auto) 0.0 x10^3/uL (0.0-0.2) 11/08/20 11:04 Baso # (Auto) 0.0 X10^3/uL (0.0-0.1) 11/08/20 11:04 Absolute Nucleated RBC 0.0 /100WBC 11/08/20 11:04 D-Dimer 0.67 ug/ml (0.0-0.57) H* 11/06/20 01:46 Sample Site Lrad 11/06/20 01:20 ABG pH 7.500 (7.35-7.45) H 11/06/20 01:20 ABG pCO2 39.0 mmHg (35.0-45.0) 11/06/20 01:20 ABG pO2 53.0 mmHg (80.0-100.0) L 11/06/20 01:20 ABG HCO3 30.4 mmol/L (22-26) H* 11/06/20 01:20 ABG O2 Saturation 90.0 % (90-100) 11/06/20 01:20 ABG Base Excess 6.7 mmol/L (-2.0-2.0) H 11/06/20 01:20 Florentino Test Pos 11/06/20 01:20 A-a Gradient 48.0 mmHg 11/06/20 01:20 FiO2 21.0 11/06/20 01:20 Blood Gas Comments Margaret well ah 11/06/20 01:20 Sodium 141 mmol/L (136-145) 11/08/20 11:04 Corrected Sodium 143 mmol/L (136-145) 11/08/20 11:04 Potassium 3.4 mmol/L (3.5-5.1) L 11/08/20 11:04 Chloride 102 mmol/L (98-107) 11/08/20 11:04 Carbon Dioxide 28.5 mmol/L (21-32) 11/08/20 11:04 BUN 16 mg/dL (7-18) 11/08/20 11:04 Creatinine 1.07 mg/dL (0.70-1.30) 11/08/20 11:04 Est GFR (MDRD) Af Amer > 60 (>60) 11/08/20 11:04 Est GFR (MDRD) Non-Af > 60 (>60) 11/08/20 11:04 Glucose 172 mg/dL (65-99) H 11/08/20 11:04 POC Glucose (mg/dL) 159 mg/dL (65-99) H 11/08/20 11:32 Calcium 8.0 mg/dL (8.5-10.1) L 11/08/20 11:04 Corrected Calcium 8.6 mg/dL (8.5-10.1) 11/08/20 11:04 Ferritin 425 ng/mL (26-388) H 11/06/20 01:46 Total Bilirubin 0.50 mg/dL (0.2-1.0) 11/08/20 11:04 AST 89 Units/L (15-37) H 11/08/20 11:04 ALT 132 Units/L (12-78) H 11/08/20 11:04 Alkaline Phosphatase 77 Units/L (46-116) 11/08/20 11:04 Creatine Kinase 308 Units/L (39-308) 11/06/20 01:46 CK-MB (CK-2) < 1.0 ng/mL (0-4.0) 11/06/20 01:46 CK/CKMB % Calc 0.3 % (<4) 11/06/20 01:46 Troponin I < 0.02 ng/mL (0-1.5) 11/06/20 13:12 C-Reactive Protein 7.50 mg/L (0-3.0) H 11/08/20 11:04 B-Natriuretic Peptide < 5.0 pg/mL (0-79) 11/06/20 01:46 Total Protein 7.0 g/dL (6.4-8.2) 11/08/20 11:04 Albumin 3.2 g/dL (3.4-5.0) L 11/08/20 11:04 Globulin 3.8 g/dL (2.5-4.5) 11/08/20 11:04 Albumin/Globulin Ratio 0.8 Ratio (1.1-2.1) L 11/08/20 11:04 Plan (1) Acute respiratory failure with hypoxia: Status: Acute (2) Pneumonia due to COVID-19 virus: Status: Acute (3) Morbid obesity: Status: Acute (4) Hyperglycemia: Status: Acute
[2020-11-08] MEDS: MELATONIN PO SCH (20:33)
[2020-11-09] MEDS: SOLU-Medrol 125 MG VIAL IVP SCH ×4 (03:09→20:49)
[2020-11-09] MEDS: ASCORBIC ACID INJ MULTI-DOSE VIAL 1,500 MG in NS 100 ML IV 100 ML IV SCH ×4 (03:09→20:49)
[2020-11-09 06:22] LABS: BASOPHILS % (AUTO) 0 % (0.2-1.0); EOSINOPHILS # (AUTO) 0.1 x10^3/uL (0.0-0.2); EOSINOPHILS % (AUTO) 0.4 % (0.9-2.9); HEMATOCRIT 44.4 % (42.0-54.0); HEMOGLOBIN 14.9 g/dL (13.5-18.0); LYMPHOCYTES # (AUTO) 0.5 X10^3/uL (1.3-2.9); LYMPHOCYTES % (AUTO) 3.1 % (21.0-51.0); MEAN CORPUSCULAR HEMOGLOBIN 28.5 pg (27.0-34.0); MEAN CORPUSCULAR HGB CONC 33.5 g/dL (33.0-35.0); MEAN CORPUSCULAR VOLUME 85.1 fL (80.0-100.0); MEAN PLATELET VOLUME 8.4 fL (7.4-11.0); MONOCYTES % (AUTO) 6.2 % (0.0-13.0); NEUTROPHILS % (AUTO) 90.3 % (42.0-75.0); PLATELET COUNT 245 X10^3/uL (150.0-450.0); RED BLOOD COUNT 5.22 X10^6/uL (4.7-6.0); RED CELL DISTRIBUTION WIDTH 14.4 % (11.6-16.5); WHITE BLOOD COUNT 16.6 X10^3/uL (3.6-10.0)
[2020-11-09 06:43] LABS: ALANINE AMINOTRANSFERASE 129 Units/L (12-78); ALBUMIN 3.1 g/dL (3.4-5.0); ALKALINE PHOSPHATASE 73 Units/L (46-116); ASPARTATE AMINO TRANSFERASE 85 Units/L (15-37); BLOOD UREA NITROGEN 16 mg/dL (7-18); CARBON DIOXIDE 30.9 mmol/L (21-32); CHLORIDE 102 mmol/L (98-107); CHOL/HDL RATIO 3.7 (0.0-5.0); CHOLESTEROL 86 mg/dL (0-200); COR CA(FOR HYPOALB) 8.7 mg/dL (8.5-10.1); COR NA(FOR HYPERGLY) 143 mmol/L (136-145); CREATININE 0.94 mg/dL (0.70-1.30); HDL CHOLESTEROL 23 mg/dL (40-60); MAGNESIUM 2.5 mg/dL (1.7-2.9); SODIUM 141 mmol/L (136-145); TOTAL PROTEIN 6.7 g/dL (6.4-8.2); TRIGLYCERIDES 132 mg/dL (0-150); eGFR NON BLACK RACES > 60 (>60)
[2020-11-09 07:17] LABS: BAND NEUTROPHILS % 2 % (0-10); PLATELET MORPHOLOGY COMMENT NORMAL (NORMAL)
--- NOTE | 2020-11-09 08:03 | RAD ---
HISTORYFollow up pneumoniaSTUDYPortable AP [id number]/2021FINDINGSHeart size is similar and considered upper normal. Interval progression of bilateral airspace disease especially in the periphery of the lungs. No hilar enlargement, pneumothorax or pleural fluid demonstrated.IMPRESSIONInterval development of bilateral pneumonia.Electronically signed by: DIPESH FLOWERS (Nov 09, 2020 08:01:22)
[2020-11-09] MEDS: BROVANA IN SCH ×2 (08:50→21:15)
[2020-11-09] MEDS: PULMICORT NEB TX 0.5 MG NEB SCH ×2 (08:50→21:15)
[2020-11-09] MEDS: ZINC SULFATE PO SCH ×2 (09:23→20:50)
[2020-11-09] MEDS: PEPCID TAB 40 MG PO SCH ×2 (09:23→20:50)
[2020-11-09] MEDS: LIPITOR TAB 80 MG PO SCH (09:23)
[2020-11-09] MEDS: REMDESIVIR 100 MG in NS 250 ML IV 250 ML IV SCH (09:23)
[2020-11-09] MEDS: VITAMIN A PO SCH (09:24)
[2020-11-09] MEDS: VITAMIN D3 125 mcg (5,000 UNITS) PO SCH (09:24)
[2020-11-09] MEDS: LEVAQUIN PREMIX IV 750 MG 750 MG/150 ML BAG IV SCH (09:24)
[2020-11-09] MEDS ORDERED: HumuLIN R SC PRN (12:51)
--- NOTE | 2020-11-09 12:51 | PCM.PROG ---
Progress Note Progress Note for Day of Date of Exam: 11/09/20 Subjective Subjective: Patient seen at bedside, overnight patient had a coughing episode and coughed up some blood. He states it hasn't happened this morning. He states he feels better. He has been on 4-5L NC. Denies fever or chills. He reports good appetite. He has been ambulating in the room. Labs: WBC: 16.6 Hgb 14.9 Plt 245 K: 3.6 BUN/Cr: 16/0.9 Glucose 173 D-dimer 0.67 CRP: 4 AST/ALT: 85/129 AB.50/39/53/30 on RA COVID + CTA: no PE, diffuse bilateral opacities CXR(11/09/20): bilateral pneumonia Plan: continue COVID-19 protocol. Continue IV solumedrol, Remdesivir and Levaquin. Wean O2 as tolerated to keep sats >92%. Continue nebs and pulmicort. Will DC lovenox, resume tomorrow for DVT ppx. . Add SCDs. Continue vitamin support. Replace K as needed. Monitor AM labs/imaging. Patient needs a sleep study outpatient. Time spent for clinical assessment, reviewing labs/imaging, physical exam, decision making and documentation greater than 45 mins. Past Medical Family Social History Past Med/Fam/Surg Hx: No changes since H&P Allergies: Allergies Penicillins Allergy (Verified 07/07/19 07:45) ceftriaxone [From Rocephin] Adverse Reaction (Verified 07/07/19 12:12) Review of Systems ROS: No change since H&P Vital Signs and I&O's Vital Signs: Temperature 97.7 F Pulse Rate [Right] 90 Pulse Rate 92 Respiratory Rate 21 Blood Pressure [Left Arm] 126/74 Blood Pressure 128/79 O2 Sat by Pulse Oximetry 90 Intake and Output: Intake & Output 11/06/20 11/07/20 11/08/20 11/09/20 23:59 23:59 23:59 23:59 Intake Total 1505 / 1505 1030 / 1030 1207 / 1207 1008 / 1008 Balance 1505 / 1505 1030 / 1030 1207 / 1207 1008 / 1008 Physical Exam Oriented: Normal Eyes: Normal Ear: Normal Nose: Normal Throat: Normal Respiratory: Generalized and Diminished Cardiovascular: Normal Auscultation: Bowel Sounds: Normal Tenderness: Normal Skin: Normal Musculoskeletal: Normal Psychiatric: Normal Affect: Normal Speech Pattern: Clear and Appropriate Laboratory and Diagnostics Result Diagrams: 11/09/20 05:35 11/09/20 05:35 Labs: Laboratory WBC 16.6 X10^3/uL (3.6-10.0) H 11/09/20 05:35 RBC 5.22 X10^6/uL (4.7-6.0) 11/09/20 05:35 Hgb 14.9 g/dL (13.5-18.0) 11/09/20 05:35 Hct 44.4 % (42.0-54.0) 11/09/20 05:35 MCV 85.1 fL (80.0-100.0) 11/09/20 05:35 MCH 28.5 pg (27.0-34.0) 11/09/20 05:35 MCHC 33.5 g/dL (33.0-35.0) 11/09/20 05:35 RDW 14.4 % (11.6-16.5) 11/09/20 05:35 Plt Count 245 X10^3/uL (150.0-450.0) 11/09/20 05:35 Plt Count Comment Adequate (ADEQUATE) 11/09/20 05:35 MPV 8.4 fL (7.4-11.0) 11/09/20 05:35 Neut % (Auto) 90.3 % (42.0-75.0) H 11/09/20 05:35 Lymph % (Auto) 3.1 % (21.0-51.0) L 11/09/20 05:35 Wagoner % (Auto) 6.2 % (0.0-13.0) 11/09/20 05:35 Eos % (Auto) 0.4 % (0.9-2.9) L 11/09/20 05:35 Baso % (Auto) 0 % (0.2-1.0) L 11/09/20 05:35 Neut # (Auto) 15.0 x10^3/uL (2.2-4.8) H 11/09/20 05:35 Lymph # (Auto) 0.5 X10^3/uL (1.3-2.9) L 11/09/20 05:35 Wagoner # (Auto) 1.0 x10^3/uL (0.3-0.8) H 11/09/20 05:35 Eos # (Auto) 0.1 x10^3/uL (0.0-0.2) 11/09/20 05:35 Baso # (Auto) 0.0 X10^3/uL (0.0-0.1) 11/09/20 05:35 Absolute Nucleated RBC 0.0 /100WBC 11/09/20 05:35 Total Counted 100 11/09/20 05:35 Neutrophils % (Manual) 90 % (39-76) H 11/09/20 05:35 Band Neutrophils % 2 % (0-10) 11/09/20 05:35 Lymphocytes % (Manual) 3 % (13-43) L 11/09/20 05:35 Monocytes % (Manual) 5 % (4-9) 11/09/20 05:35 Plt Morphology Comment Normal (NORMAL) 11/09/20 05:35 RBC Morphology Normal (NORMAL) 11/09/20 05:35 D-Dimer 0.67 ug/ml (0.0-0.57) H* 11/06/20 01:46 Sample Site Lrad 11/06/20 01:20 ABG pH 7.500 (7.35-7.45) H 11/06/20 01:20 ABG pCO2 39.0 mmHg (35.0-45.0) 11/06/20 01:20 ABG pO2 53.0 mmHg (80.0-100.0) L 11/06/20 01:20 ABG HCO3 30.4 mmol/L (22-26) H* 11/06/20 01:20 ABG O2 Saturation 90.0 % (90-100) 11/06/20 01:20 ABG Base Excess 6.7 mmol/L (-2.0-2.0) H 11/06/20 01:20 Florentino Test Pos 11/06/20 01:20 A-a Gradient 48.0 mmHg 11/06/20 01:20 FiO2 21.0 11/06/20 01:20 Blood Gas Comments Margaret well ah 11/06/20 01:20 Sodium 141 mmol/L (136-145) 11/09/20 05:35 Corrected Sodium 143 mmol/L (136-145) 11/09/20 05:35 Potassium 3.6 mmol/L (3.5-5.1) 11/09/20 05:35 Chloride 102 mmol/L (98-107) 11/09/20 05:35 Carbon Dioxide 30.9 mmol/L (21-32) 11/09/20 05:35 BUN 16 mg/dL (7-18) 11/09/20 05:35 Creatinine 0.94 mg/dL (0.70-1.30) 11/09/20 05:35 Est GFR (MDRD) Af Amer > 60 (>60) 11/09/20 05:35 Est GFR (MDRD) Non-Af > 60 (>60) 11/09/20 05:35 Glucose 173 mg/dL (65-99) H 11/09/20 05:35 POC Glucose (mg/dL) 186 mg/dL (65-99) H 11/08/20 16:40 Hemoglobin A1c 6.4 % 11/08/20 11:04 Calcium 8.0 mg/dL (8.5-10.1) L 11/09/20 05:35 Corrected Calcium 8.7 mg/dL (8.5-10.1) 11/09/20 05:35 Magnesium 2.5 mg/dL (1.7-2.9) 11/09/20 05:35 Ferritin 425 ng/mL (26-388) H 11/06/20 01:46 Total Bilirubin 0.60 mg/dL (0.2-1.0) 11/09/20 05:35 AST 85 Units/L (15-37) H 11/09/20 05:35 ALT 129 Units/L (12-78) H 11/09/20 05:35 Alkaline Phosphatase 73 Units/L (46-116) 11/09/20 05:35 Creatine Kinase 308 Units/L (39-308) 11/06/20 01:46 CK-MB (CK-2) < 1.0 ng/mL (0-4.0) 11/06/20 01:46 CK/CKMB % Calc 0.3 % (<4) 11/06/20 01:46 Troponin I < 0.02 ng/mL (0-1.5) 11/06/20 13:12 C-Reactive Protein 4.00 mg/L (0-3.0) H 11/09/20 05:35 B-Natriuretic Peptide < 5.0 pg/mL (0-79) 11/06/20 01:46 Total Protein 6.7 g/dL (6.4-8.2) 11/09/20 05:35 Albumin 3.1 g/dL (3.4-5.0) L 11/09/20 05:35 Globulin 3.6 g/dL (2.5-4.5) 11/09/20 05:35 Albumin/Globulin Ratio 0.9 Ratio (1.1-2.1) L 11/09/20 05:35 Triglycerides 132 mg/dL (0-150) 11/09/20 05:35 Cholesterol 86 mg/dL (0-200) 11/09/20 05:35 LDL Cholesterol, Calc 37 mg/dL (0-100) 11/09/20 05:35 HDL Cholesterol 23 mg/dL (40-60) L 11/09/20 05:35 Cholesterol/HDL Ratio 3.7 (0.0-5.0) 11/09/20 05:35 Plan (1) Acute respiratory failure with hypoxia: Status: Acute (2) Pneumonia due to COVID-19 virus: Status: Acute (3) Morbid obesity: Status: Acute (4) Hyperglycemia: Status: Acute
[2020-11-09] MEDS: NS 1000 ML 1,000 ML IV SCH (14:31)
[2020-11-09] MEDS: MELATONIN PO SCH (20:50)
[2020-11-10] MEDS: ASCORBIC ACID INJ MULTI-DOSE VIAL 1,500 MG in NS 100 ML IV 100 ML IV SCH ×4 (03:13→21:43)
[2020-11-10] MEDS: SOLU-Medrol 125 MG VIAL IVP SCH ×4 (03:14→21:44)
[2020-11-10 05:42] LABS: ABG BASE EXCESS 7.8 mmol/L (-2.0-2.0)
[2020-11-10 05:45] LABS: ABG ALLEN TEST POS
[2020-11-10 06:26] LABS: BASOPHILS % (AUTO) 0.1 % (0.2-1.0); HEMATOCRIT 44.3 % (42.0-54.0); HEMOGLOBIN 14.9 g/dL (13.5-18.0); LYMPHOCYTES # (AUTO) 0.4 X10^3/uL (1.3-2.9); LYMPHOCYTES % (AUTO) 2.5 % (21.0-51.0); MEAN CORPUSCULAR HEMOGLOBIN 28.5 pg (27.0-34.0); MEAN CORPUSCULAR HGB CONC 33.6 g/dL (33.0-35.0); MEAN PLATELET VOLUME 8.4 fL (7.4-11.0); MONOCYTES # (AUTO) 0.8 x10^3/uL (0.3-0.8); MONOCYTES % (AUTO) 5.2 % (0.0-13.0); NEUTROPHILS # (AUTO) 14.1 x10^3/uL (2.2-4.8); NEUTROPHILS % (AUTO) 92.2 % (42.0-75.0); PLATELET COUNT 281 X10^3/uL (150.0-450.0); RED BLOOD COUNT 5.21 X10^6/uL (4.7-6.0); RED CELL DISTRIBUTION WIDTH 14.5 % (11.6-16.5); WHITE BLOOD COUNT 15.3 X10^3/uL (3.6-10.0)
[2020-11-10 06:27] LABS: ALANINE AMINOTRANSFERASE 143 Units/L (12-78); ALBUMIN 3.2 g/dL (3.4-5.0); ALKALINE PHOSPHATASE 74 Units/L (46-116); ASPARTATE AMINO TRANSFERASE 81 Units/L (15-37); BLOOD UREA NITROGEN 17 mg/dL (7-18); CARBON DIOXIDE 30.5 mmol/L (21-32); CHLORIDE 101 mmol/L (98-107); COR CA(FOR HYPOALB) 8.6 mg/dL (8.5-10.1); COR NA(FOR HYPERGLY) 142 mmol/L (136-145); CREATININE 0.97 mg/dL (0.70-1.30); SODIUM 140 mmol/L (136-145); TOTAL PROTEIN 6.8 g/dL (6.4-8.2); eGFR NON BLACK RACES > 60 (>60)
[2020-11-10 07:25] LABS: BAND NEUTROPHILS % 2 % (0-10); PLATELET MORPHOLOGY COMMENT NORMAL (NORMAL)
--- NOTE | 2020-11-10 07:47 | RAD ---
HISTORYSOBSTUDYCHEST, 1 [id number]/06/2021FINDINGSPatchy bilateral areas of opacity represents bronchopneumonia. Overall not much changed from yesterday.No pleural effusion or pneumothorax.The heart size is magnified.Bones are unremarkable.IMPRESSION1. Unchanged bronchopneumoniaElectronically signed by: Clifton Lopez (Nov 10, 2020 07:45:14)
[2020-11-10] MEDS ORDERED: PHARMACY CONSULT - IVERMECTIN XX SCH (09:00)
[2020-11-10] MEDS: PULMICORT NEB TX 0.5 MG NEB SCH ×2 (09:03→20:20)
[2020-11-10] MEDS: BROVANA IN SCH ×2 (09:03→20:20)
[2020-11-10] MEDS: LIPITOR TAB 80 MG PO SCH (09:40)
[2020-11-10] MEDS: VITAMIN A PO SCH (09:40)
[2020-11-10] MEDS: VITAMIN D3 125 mcg (5,000 UNITS) PO SCH (09:40)
[2020-11-10] MEDS: LEVAQUIN PREMIX IV 750 MG 750 MG/150 ML BAG IV SCH (10:05)
[2020-11-10] MEDS: PEPCID TAB 40 MG PO SCH ×2 (12:01→21:43)
[2020-11-10] MEDS: ZINC SULFATE PO SCH ×2 (12:03→21:43)
[2020-11-10] MEDS: NS 1000 ML 1,000 ML IV SCH ×2 (18:02→21:42)
[2020-11-10] MEDS: MELATONIN PO SCH (21:43)
[2020-11-11] MEDS: SOLU-Medrol 125 MG VIAL IVP SCH ×4 (02:09→20:37)
[2020-11-11] MEDS: ASCORBIC ACID INJ MULTI-DOSE VIAL 1,500 MG in NS 100 ML IV 100 ML IV SCH ×4 (02:09→20:36)
[2020-11-11 06:20] LABS: ABG BASE EXCESS 8.8 mmol/L (-2.0-2.0)
[2020-11-11 06:21] LABS: ABG ALLEN TEST POS; ABG HCO3 32.7 mmol/L (22-26)
[2020-11-11 06:28] LABS: BASOPHILS % (AUTO) 0.1 % (0.2-1.0); HEMATOCRIT 44.3 % (42.0-54.0); HEMOGLOBIN 14.6 g/dL (13.5-18.0); LYMPHOCYTES # (AUTO) 0.5 X10^3/uL (1.3-2.9); LYMPHOCYTES % (AUTO) 3.8 % (21.0-51.0); MEAN CORPUSCULAR HEMOGLOBIN 28.2 pg (27.0-34.0); MEAN CORPUSCULAR HGB CONC 32.9 g/dL (33.0-35.0); MEAN CORPUSCULAR VOLUME 85.6 fL (80.0-100.0); MONOCYTES # (AUTO) 0.6 x10^3/uL (0.3-0.8); MONOCYTES % (AUTO) 4.7 % (0.0-13.0); NEUTROPHILS # (AUTO) 12.2 x10^3/uL (2.2-4.8); NEUTROPHILS % (AUTO) 91.4 % (42.0-75.0); PLATELET COUNT 279 X10^3/uL (150.0-450.0); RED BLOOD COUNT 5.17 X10^6/uL (4.7-6.0); RED CELL DISTRIBUTION WIDTH 14.4 % (11.6-16.5); WHITE BLOOD COUNT 13.3 X10^3/uL (3.6-10.0)
[2020-11-11 06:50] LABS: ALANINE AMINOTRANSFERASE 150 Units/L (12-78); ALBUMIN 3.1 g/dL (3.4-5.0); ALKALINE PHOSPHATASE 73 Units/L (46-116); ASPARTATE AMINO TRANSFERASE 80 Units/L (15-37); BLOOD UREA NITROGEN 18 mg/dL (7-18); CALCIUM 7.8 mg/dL (8.5-10.1); CARBON DIOXIDE 31.8 mmol/L (21-32); CHLORIDE 100 mmol/L (98-107); COR CA(FOR HYPOALB) 8.5 mg/dL (8.5-10.1); COR NA(FOR HYPERGLY) 140 mmol/L (136-145); CREATININE 0.88 mg/dL (0.70-1.30); SODIUM 138 mmol/L (136-145); TOTAL PROTEIN 6.6 g/dL (6.4-8.2); eGFR NON BLACK RACES > 60 (>60)
[2020-11-11 07:18] LABS: BAND NEUTROPHILS % 2 % (0-10); PLATELET MORPHOLOGY COMMENT NORMAL (NORMAL)
--- NOTE | 2020-11-11 07:50 | RAD ---
HISTORYSOBSTUDYCHEST, 1 [id number]/07/2021FINDINGSThe cardiomediastinal silhouette is stable. Similar bilateral airspace opacities. The bony thorax appears intact.IMPRESSIONNo significant change.Electronically signed by: YANIRA RINCON (Nov 11, 2020 07:48:33)
[2020-11-11] MEDS: PEPCID TAB 40 MG PO SCH ×2 (09:03→20:36)
[2020-11-11] MEDS: LEVAQUIN PREMIX IV 750 MG 750 MG/150 ML BAG IV SCH (09:03)
[2020-11-11] MEDS: LIPITOR TAB 80 MG PO SCH (09:03)
[2020-11-11] MEDS: VITAMIN D3 125 mcg (5,000 UNITS) PO SCH (09:04)
[2020-11-11] MEDS: VITAMIN A PO SCH (09:04)
[2020-11-11] MEDS: ZINC SULFATE PO SCH ×2 (09:04→20:37)
[2020-11-11] MEDS: BROVANA IN SCH ×2 (09:35→20:20)
[2020-11-11] MEDS: IVERMECTIN PO SCH (09:35)
[2020-11-11] MEDS: PULMICORT NEB TX 0.5 MG NEB SCH ×2 (09:35→20:20)
[2020-11-11] MEDS: ACTOS PO SCH (10:53)
[2020-11-11] MEDS: GLUCOPHAGE XR 24-HR PO SCH ×2 (10:54→20:36)
[2020-11-11] MEDS: NS 1000 ML 1,000 ML IV SCH (15:04)
[2020-11-11] MEDS: MELATONIN PO SCH (20:36)
[2020-11-12] MEDS: K-DUR TAB 20 MEQ PO PRN (00:42)
[2020-11-12] MEDS: SOLU-Medrol 125 MG VIAL IVP SCH ×4 (02:22→20:53)
[2020-11-12] MEDS: ASCORBIC ACID INJ MULTI-DOSE VIAL 1,500 MG in NS 100 ML IV 100 ML IV SCH ×4 (02:22→20:55)
--- NOTE | 2020-11-12 08:10 | RAD ---
HISTORYSOBSTUDYCHEST, 1 [id number]/08/2021FINDINGSThe lungs are not well inflated. As a result, there are hypoventilatory changes.Patchy areas of opacity are present consistent with bronchopneumonia. No pleural effusion or pneumothorax.The heart size is magnified.Bones are unremarkable.IMPRESSION1. Decreased aeration2. Unchanged bronchopneumoniaElectronically signed by: Clifton Lopez (Nov 12, 2020 08:08:53)
[2020-11-12] MEDS: ACTOS PO SCH (08:39)
[2020-11-12] MEDS: PEPCID TAB 40 MG PO SCH ×2 (08:39→20:53)
[2020-11-12] MEDS: LIPITOR TAB 80 MG PO SCH (08:39)
[2020-11-12] MEDS: IVERMECTIN PO SCH (08:39)
[2020-11-12] MEDS: GLUCOPHAGE XR 24-HR PO SCH ×2 (08:39→20:55)
[2020-11-12] MEDS: VITAMIN D3 125 mcg (5,000 UNITS) PO SCH (08:40)
[2020-11-12] MEDS: VITAMIN A PO SCH (08:40)
[2020-11-12] MEDS: ZINC SULFATE PO SCH ×2 (08:40→20:53)
[2020-11-12] MEDS: BROVANA IN SCH ×2 (08:50→21:21)
[2020-11-12] MEDS: PULMICORT NEB TX 0.5 MG NEB SCH ×2 (08:50→21:21)
[2020-11-12] MEDS: LEVAQUIN PREMIX IV 750 MG 750 MG/150 ML BAG IV SCH (09:32)
[2020-11-12] MEDS ORDERED: LEXAPRO ONE (10:04)
[2020-11-12] MEDS: KLONOPIN TAB 0.5 MG PO SCH ×2 (10:12→20:56)
[2020-11-12] MEDS: LEXAPRO PO SCH (10:12)
[2020-11-12 11:08] LABS: BASOPHILS % (AUTO) 0.1 % (0.2-1.0); HEMATOCRIT 44.8 % (42.0-54.0); HEMOGLOBIN 14.8 g/dL (13.5-18.0); LYMPHOCYTES # (AUTO) 0.5 X10^3/uL (1.3-2.9); LYMPHOCYTES % (AUTO) 3.1 % (21.0-51.0); MEAN CORPUSCULAR HEMOGLOBIN 28.1 pg (27.0-34.0); MEAN CORPUSCULAR HGB CONC 32.9 g/dL (33.0-35.0); MEAN CORPUSCULAR VOLUME 85.3 fL (80.0-100.0); MEAN PLATELET VOLUME 7.9 fL (7.4-11.0); MONOCYTES # (AUTO) 0.8 x10^3/uL (0.3-0.8); MONOCYTES % (AUTO) 5.3 % (0.0-13.0); NEUTROPHILS # (AUTO) 13.3 x10^3/uL (2.2-4.8); NEUTROPHILS % (AUTO) 91.5 % (42.0-75.0); PLATELET COUNT 308 X10^3/uL (150.0-450.0); RED BLOOD COUNT 5.25 X10^6/uL (4.7-6.0); RED CELL DISTRIBUTION WIDTH 14.4 % (11.6-16.5); WHITE BLOOD COUNT 14.6 X10^3/uL (3.6-10.0)
[2020-11-12 11:27] LABS: BAND NEUTROPHILS % 2 % (0-10)
[2020-11-12 11:28] LABS: PLATELET MORPHOLOGY COMMENT NORMAL (NORMAL)
[2020-11-12 11:31] LABS: ALANINE AMINOTRANSFERASE 141 Units/L (12-78); ALBUMIN 2.9 g/dL (3.4-5.0); ALKALINE PHOSPHATASE 69 Units/L (46-116); ASPARTATE AMINO TRANSFERASE 67 Units/L (15-37); BLOOD UREA NITROGEN 22 mg/dL (7-18); CALCIUM 7.8 mg/dL (8.5-10.1); CARBON DIOXIDE 29.7 mmol/L (21-32); CHLORIDE 102 mmol/L (98-107); COR CA(FOR HYPOALB) 8.7 mg/dL (8.5-10.1); COR NA(FOR HYPERGLY) 140 mmol/L (136-145); CREATININE 0.91 mg/dL (0.70-1.30); SODIUM 138 mmol/L (136-145); TOTAL PROTEIN 6.2 g/dL (6.4-8.2); eGFR NON BLACK RACES > 60 (>60)
[2020-11-12] MEDS ORDERED: PHARMACY CONSULT - LOVENOX XX SCH (13:00)
[2020-11-12] MEDS: LOVENOX INJ 30 MG SYR SC SCH ×2 (14:37→21:40)
[2020-11-12] MEDS: NS 1000 ML 1,000 ML IV SCH (14:38)
[2020-11-12] MEDS: MELATONIN PO SCH (20:54)
[2020-11-13] MEDS: SOLU-Medrol 125 MG VIAL IVP SCH ×4 (02:27→21:05)
[2020-11-13] MEDS: ASCORBIC ACID INJ MULTI-DOSE VIAL 1,500 MG in NS 100 ML IV 100 ML IV SCH ×4 (02:27→21:06)
[2020-11-13 04:48] LABS: ABG BASE EXCESS 7.8 mmol/L (-2.0-2.0)
[2020-11-13 04:50] LABS: ABG ALLEN TEST POS
--- NOTE | 2020-11-13 07:12 | RAD ---
HISTORYSOB Relevant Clinical InformationSTUDYCHEST, 1 GTIOIFAXVQGAHU19/09/2021FINDINGSThe trachea is midline. The cardiac silhouette is stable. Patchy bilateral pneumonic infiltrates unchanged. No pneumothorax. The bony thorax is unremarkable.IMPRESSIONStable portable chestElectronically signed by: Jarad Goodwin (Nov 13, 2020 07:10:19)
[2020-11-13] MEDS ORDERED: LEXAPRO ONE (08:33)
[2020-11-13] MEDS: BROVANA IN SCH ×2 (08:35→19:50)
[2020-11-13] MEDS: PULMICORT NEB TX 0.5 MG NEB SCH ×2 (08:35→19:50)
[2020-11-13] MEDS ORDERED: PHARMACY CONSULT - LOVENOX XX SCH (09:00)
[2020-11-13] MEDS: ACTOS PO SCH (10:25)
[2020-11-13] MEDS: GLUCOPHAGE XR 24-HR PO SCH ×2 (10:26→21:06)
[2020-11-13] MEDS: LEVAQUIN PREMIX IV 750 MG 750 MG/150 ML BAG IV SCH (10:26)
[2020-11-13] MEDS: IVERMECTIN PO SCH (10:26)
[2020-11-13] MEDS: KLONOPIN TAB 0.5 MG PO SCH ×2 (10:26→21:05)
[2020-11-13] MEDS: LIPITOR TAB 80 MG PO SCH (10:27)
[2020-11-13] MEDS: PEPCID TAB 40 MG PO SCH ×2 (10:27→21:06)
[2020-11-13] MEDS: VITAMIN D3 125 mcg (5,000 UNITS) PO SCH (10:28)
[2020-11-13] MEDS: LEXAPRO PO SCH (10:30)
[2020-11-13] MEDS: VITAMIN A PO SCH (10:33)
[2020-11-13] MEDS: LOVENOX INJ 150 MG SYR SC SCH ×2 (10:33→21:05)
[2020-11-13] MEDS: ZINC SULFATE PO SCH ×2 (10:33→21:05)
[2020-11-13] MEDS: NS 1000 ML 1,000 ML IV SCH (13:54)
[2020-11-13] MEDS: MELATONIN PO SCH (21:06)
[2020-11-14] MEDS: SOLU-Medrol 125 MG VIAL IVP SCH ×4 (02:19→21:12)
[2020-11-14] MEDS: ASCORBIC ACID INJ MULTI-DOSE VIAL 1,500 MG in NS 100 ML IV 100 ML IV SCH ×4 (02:19→21:12)
[2020-11-14 04:56] LABS: ABG BASE EXCESS 7.4 mmol/L (-2.0-2.0)
[2020-11-14 04:58] LABS: ABG ALLEN TEST POS
[2020-11-14 06:09] LABS: BASOPHILS % (AUTO) 0.1 % (0.2-1.0); HEMOGLOBIN 14.3 g/dL (13.5-18.0); LYMPHOCYTES # (AUTO) 0.5 X10^3/uL (1.3-2.9); LYMPHOCYTES % (AUTO) 3.1 % (21.0-51.0); MEAN CORPUSCULAR HEMOGLOBIN 28.1 pg (27.0-34.0); MEAN CORPUSCULAR HGB CONC 33.1 g/dL (33.0-35.0); MEAN PLATELET VOLUME 8.2 fL (7.4-11.0); MONOCYTES # (AUTO) 0.8 x10^3/uL (0.3-0.8); MONOCYTES % (AUTO) 4.7 % (0.0-13.0); NEUTROPHILS # (AUTO) 14.7 x10^3/uL (2.2-4.8); NEUTROPHILS % (AUTO) 92.1 % (42.0-75.0); PLATELET COUNT 315 X10^3/uL (150.0-450.0); RED BLOOD COUNT 5.06 X10^6/uL (4.7-6.0); RED CELL DISTRIBUTION WIDTH 14.2 % (11.6-16.5)
[2020-11-14 06:31] LABS: ALANINE AMINOTRANSFERASE 123 Units/L (12-78); ALBUMIN 2.6 g/dL (3.4-5.0); ALKALINE PHOSPHATASE 63 Units/L (46-116); ASPARTATE AMINO TRANSFERASE 63 Units/L (15-37); BLOOD UREA NITROGEN 23 mg/dL (7-18); CALCIUM 7.4 mg/dL (8.5-10.1); CARBON DIOXIDE 31.9 mmol/L (21-32); CHLORIDE 104 mmol/L (98-107); COR CA(FOR HYPOALB) 8.5 mg/dL (8.5-10.1); COR NA(FOR HYPERGLY) 141 mmol/L (136-145); CREATININE 0.91 mg/dL (0.70-1.30); SODIUM 139 mmol/L (136-145); TOTAL PROTEIN 5.5 g/dL (6.4-8.2); eGFR NON BLACK RACES > 60 (>60)
--- NOTE | 2020-11-14 07:49 | RAD ---
HISTORYSOBSTUDYPortable AP [id number]/10/2021FINDINGSHeart size remains upper normal to slightly enlarged. There is no change in appearance of the bilateral airspace disease, with no additional consolidation, pleural fluid or pneumothorax identified.IMPRESSIONNo change in appearance of bilateral pneumonia.Electronically signed by: DIPESH FLOWERS (Nov 14, 2020 07:46:36)
[2020-11-14 08:27] LABS: BAND NEUTROPHILS % 2 % (0-10); METAMYELOCYTES % 1
[2020-11-14 08:28] LABS: GIANT PLATELET FEW; PLATELET MORPHOLOGY COMMENT ABNORMAL (NORMAL)
[2020-11-14] MEDS ORDERED: TYGACIL 50 MG VIAL 100 MG in NS 100 ML IV 100 ML IV ONE (08:48)
[2020-11-14] MEDS ORDERED: LEXAPRO ONE (09:47)
[2020-11-14] MEDS: PULMICORT NEB TX 0.5 MG NEB SCH ×2 (09:57→20:45)
[2020-11-14] MEDS: BROVANA IN SCH ×2 (09:57→20:45)
[2020-11-14] MEDS: IVERMECTIN PO SCH (09:57)
[2020-11-14] MEDS: LIPITOR TAB 80 MG PO SCH (09:58)
[2020-11-14] MEDS: GLUCOPHAGE XR 24-HR PO SCH ×2 (09:58→21:12)
[2020-11-14] MEDS: LEXAPRO PO SCH (09:58)
[2020-11-14] MEDS: PEPCID TAB 40 MG PO SCH ×2 (09:58→21:12)
[2020-11-14] MEDS: LOVENOX INJ 150 MG SYR SC SCH ×2 (09:59→21:11)
[2020-11-14] MEDS: VITAMIN D3 125 mcg (5,000 UNITS) PO SCH (09:59)
[2020-11-14] MEDS: KLONOPIN TAB 0.5 MG PO SCH ×2 (09:59→21:13)
[2020-11-14] MEDS: ACTOS PO SCH (09:59)
[2020-11-14] MEDS: ZINC SULFATE PO SCH ×2 (09:59→21:12)
[2020-11-14] MEDS: VITAMIN A PO SCH (10:00)
[2020-11-14] MEDS: K-DUR TAB 20 MEQ PO PRN (11:08)
[2020-11-14] MEDS: NS 1000 ML 1,000 ML IV SCH (13:06)
[2020-11-14] MEDS: PERIACTIN TAB 4 MG PO SCH ×2 (13:47→21:12)
[2020-11-14] MEDS: DIFLUCAN PO SCH (13:47)
[2020-11-14] MEDS: MELATONIN PO SCH (21:12)
[2020-11-14] MEDS: TYGACIL 50 MG VIAL 50 MG in NS 100 ML IV 100 ML IV SCH (21:34)
[2020-11-15] MEDS: ASCORBIC ACID INJ MULTI-DOSE VIAL 1,500 MG in NS 100 ML IV 100 ML IV SCH ×4 (02:32→20:40)
[2020-11-15] MEDS: SOLU-Medrol 125 MG VIAL IVP SCH ×4 (02:32→20:41)
[2020-11-15] MEDS: PERIACTIN TAB 4 MG PO SCH ×3 (05:45→21:46)
[2020-11-15 06:39] LABS: BASOPHILS % (AUTO) 0.1 % (0.2-1.0); HEMATOCRIT 43.8 % (42.0-54.0); HEMOGLOBIN 14.3 g/dL (13.5-18.0); LYMPHOCYTES # (AUTO) 0.5 X10^3/uL (1.3-2.9); LYMPHOCYTES % (AUTO) 2.5 % (21.0-51.0); MEAN CORPUSCULAR HEMOGLOBIN 28.3 pg (27.0-34.0); MEAN CORPUSCULAR HGB CONC 32.8 g/dL (33.0-35.0); MEAN CORPUSCULAR VOLUME 86.3 fL (80.0-100.0); MEAN PLATELET VOLUME 8.2 fL (7.4-11.0); MONOCYTES # (AUTO) 0.7 x10^3/uL (0.3-0.8); MONOCYTES % (AUTO) 3.6 % (0.0-13.0); NEUTROPHILS # (AUTO) 19.5 x10^3/uL (2.2-4.8); NEUTROPHILS % (AUTO) 93.8 % (42.0-75.0); PLATELET COUNT 302 X10^3/uL (150.0-450.0); RED BLOOD COUNT 5.07 X10^6/uL (4.7-6.0); RED CELL DISTRIBUTION WIDTH 14.3 % (11.6-16.5); WHITE BLOOD COUNT 20.7 X10^3/uL (3.6-10.0)
[2020-11-15 06:49] LABS: ALANINE AMINOTRANSFERASE 109 Units/L (12-78); ALBUMIN 2.6 g/dL (3.4-5.0); ALKALINE PHOSPHATASE 61 Units/L (46-116); ASPARTATE AMINO TRANSFERASE 36 Units/L (15-37); BLOOD UREA NITROGEN 28 mg/dL (7-18); CALCIUM 7.3 mg/dL (8.5-10.1); CARBON DIOXIDE 29.1 mmol/L (21-32); CHLORIDE 105 mmol/L (98-107); COR CA(FOR HYPOALB) 8.4 mg/dL (8.5-10.1); COR NA(FOR HYPERGLY) 142 mmol/L (136-145); CREATININE 0.86 mg/dL (0.70-1.30); SODIUM 141 mmol/L (136-145); TOTAL PROTEIN 5.6 g/dL (6.4-8.2); eGFR NON BLACK RACES > 60 (>60)
[2020-11-15 08:09] LABS: BAND NEUTROPHILS % 2 % (0-10); METAMYELOCYTES % 1; PLATELET MORPHOLOGY COMMENT NORMAL (NORMAL)
[2020-11-15] MEDS ORDERED: LEXAPRO ONE (09:18)
[2020-11-15] MEDS: ACTOS PO SCH (09:23)
[2020-11-15] MEDS: DIFLUCAN PO SCH (09:23)
[2020-11-15] MEDS: GLUCOPHAGE XR 24-HR PO SCH ×2 (09:23→20:42)
[2020-11-15] MEDS: LIPITOR TAB 80 MG PO SCH (09:25)
[2020-11-15] MEDS: LEXAPRO PO SCH (09:25)
[2020-11-15] MEDS: PEPCID TAB 40 MG PO SCH ×2 (09:26→20:41)
[2020-11-15] MEDS: VITAMIN A PO SCH (09:26)
[2020-11-15] MEDS: VITAMIN D3 125 mcg (5,000 UNITS) PO SCH (09:27)
[2020-11-15] MEDS: ZINC SULFATE PO SCH ×2 (09:28→20:41)
[2020-11-15] MEDS: PULMICORT NEB TX 0.5 MG NEB SCH ×2 (09:30→20:24)
[2020-11-15] MEDS: BROVANA IN SCH ×2 (09:30→20:24)
[2020-11-15] MEDS: LOVENOX INJ 150 MG SYR SC SCH ×2 (09:31→20:47)
[2020-11-15] MEDS: KLONOPIN TAB 0.5 MG PO SCH ×2 (09:31→20:41)
[2020-11-15] MEDS: TYGACIL 50 MG VIAL 50 MG in NS 100 ML IV 100 ML IV SCH ×2 (10:10→21:46)
[2020-11-15] MEDS ORDERED: LR 1000 ML IV 1,000 ML IV ONE (11:56)
[2020-11-15] MEDS: AVELOX IV 400 MG/250 ML BAG 400 MG/250 ML PIGGYBACK IV SCH (12:26)
[2020-11-15] MEDS ORDERED: VANCOMYCIN IV *PREMIX 1 G/200 ML BAG 1 G/200 ML PIGGYBACK IV STA (13:12)
[2020-11-15] MEDS: NS 1000 ML 1,000 ML IV SCH (13:35)
[2020-11-15] MEDS: MELATONIN PO SCH (20:42)
[2020-11-16] MEDS: SOLU-Medrol 125 MG VIAL IVP SCH ×4 (02:15→21:16)
[2020-11-16] MEDS: ASCORBIC ACID INJ MULTI-DOSE VIAL 1,500 MG in NS 100 ML IV 100 ML IV SCH ×4 (02:15→21:15)
[2020-11-16] MEDS: PERIACTIN TAB 4 MG PO SCH ×3 (05:10→21:16)
[2020-11-16 06:10] LABS: BASOPHILS % (AUTO) 0.2 % (0.2-1.0); HEMATOCRIT 44.6 % (42.0-54.0); HEMOGLOBIN 14.4 g/dL (13.5-18.0); LYMPHOCYTES # (AUTO) 0.5 X10^3/uL (1.3-2.9); LYMPHOCYTES % (AUTO) 2.1 % (21.0-51.0); MEAN CORPUSCULAR HEMOGLOBIN 28.1 pg (27.0-34.0); MEAN CORPUSCULAR HGB CONC 32.2 g/dL (33.0-35.0); MEAN CORPUSCULAR VOLUME 87.2 fL (80.0-100.0); MEAN PLATELET VOLUME 8.3 fL (7.4-11.0); MONOCYTES # (AUTO) 0.7 x10^3/uL (0.3-0.8); MONOCYTES % (AUTO) 3.1 % (0.0-13.0); NEUTROPHILS # (AUTO) 21.9 x10^3/uL (2.2-4.8); NEUTROPHILS % (AUTO) 94.6 % (42.0-75.0); PLATELET COUNT 284 X10^3/uL (150.0-450.0); RED BLOOD COUNT 5.12 X10^6/uL (4.7-6.0); RED CELL DISTRIBUTION WIDTH 14.6 % (11.6-16.5); WHITE BLOOD COUNT 23.2 X10^3/uL (3.6-10.0)
[2020-11-16 06:18] LABS: ALANINE AMINOTRANSFERASE 89 Units/L (12-78); ALBUMIN 2.4 g/dL (3.4-5.0); ALKALINE PHOSPHATASE 58 Units/L (46-116); ASPARTATE AMINO TRANSFERASE 26 Units/L (15-37); BLOOD UREA NITROGEN 29 mg/dL (7-18); CALCIUM 7.1 mg/dL (8.5-10.1); CARBON DIOXIDE 26.5 mmol/L (21-32); CHLORIDE 106 mmol/L (98-107); COR CA(FOR HYPOALB) 8.4 mg/dL (8.5-10.1); COR NA(FOR HYPERGLY) 144 mmol/L (136-145); CREATININE 0.92 mg/dL (0.70-1.30); SODIUM 143 mmol/L (136-145); TOTAL PROTEIN 5.1 g/dL (6.4-8.2); eGFR NON BLACK RACES > 60 (>60)
--- NOTE | 2020-11-16 06:41 | RAD ---
HISTORYCOVID, INCREASING WHITE COUNT Relevant Clinical InformationSTUDYCHEST, 1 [id number]/11/2021FINDINGSThe trachea is midline. The cardiac silhouette is slightly enlarged.. The bilateral airspace disease unchanged. No pneumothorax. The bony thorax is unremarkable.IMPRESSIONDiffuse bilateral pneumonic infiltrates unchanged from 11/14/2020lectronically signed by: Jarad Goodwin (Nov 16, 2020 06:40:45)
[2020-11-16 06:50] LABS: BAND NEUTROPHILS % 1 % (0-10); PLATELET MORPHOLOGY COMMENT NORMAL (NORMAL)
[2020-11-16] MEDS ORDERED: LEXAPRO ONE (08:10)
[2020-11-16] MEDS ORDERED: LR 1000 ML IV 1,000 ML IV ONE (08:55)
[2020-11-16] MEDS ORDERED: PHARMACY CONSULT - VANCOMYCIN XX SCH (09:00)
[2020-11-16] MEDS: PULMICORT NEB TX 0.5 MG NEB SCH ×2 (09:00→21:00)
[2020-11-16] MEDS: BROVANA IN SCH ×2 (09:00→21:00)
[2020-11-16] MEDS: ACTOS PO SCH (09:44)
[2020-11-16] MEDS: DIFLUCAN PO SCH (09:45)
[2020-11-16] MEDS: KLONOPIN TAB 0.5 MG PO SCH ×2 (09:45→21:15)
[2020-11-16] MEDS: GLUCOPHAGE XR 24-HR PO SCH ×2 (09:45→21:15)
[2020-11-16] MEDS: LIPITOR TAB 80 MG PO SCH (09:46)
[2020-11-16] MEDS: VITAMIN A PO SCH (09:47)
[2020-11-16] MEDS: TYGACIL 50 MG VIAL 50 MG in NS 100 ML IV 100 ML IV SCH ×2 (09:48→22:58)
[2020-11-16] MEDS: VITAMIN D3 125 mcg (5,000 UNITS) PO SCH (09:48)
[2020-11-16] MEDS: ZINC SULFATE PO SCH ×2 (09:48→21:16)
[2020-11-16] MEDS: PEPCID TAB 40 MG PO SCH ×2 (09:56→21:16)
[2020-11-16] MEDS: CYTOTEC PO SCH ×4 (09:56→21:15)
[2020-11-16] MEDS: LOVENOX INJ 120 MG SYR SC SCH ×2 (09:57→21:15)
[2020-11-16] MEDS: VANCOMYCIN IV *PREMIX 1.25 G/250 ML BAG 1.25 G/250 ML PIGGYBACK IV SCH ×2 (09:57→21:59)
[2020-11-16] MEDS: LEXAPRO PO SCH (10:29)
[2020-11-16] MEDS: NS 1000 ML 1,000 ML IV SCH (13:54)
[2020-11-16] MEDS: AVELOX IV 400 MG/250 ML BAG 400 MG/250 ML PIGGYBACK IV SCH (13:55)
[2020-11-16] MEDS: MELATONIN PO SCH (21:14)
[2020-11-16] MEDS: K-DUR TAB 20 MEQ PO PRN (21:17)
[2020-11-17] MEDS: ASCORBIC ACID INJ MULTI-DOSE VIAL 1,500 MG in NS 100 ML IV 100 ML IV SCH ×3 (02:39→14:51)
[2020-11-17] MEDS: SOLU-Medrol 125 MG VIAL IVP SCH (02:39)
[2020-11-17] MEDS: PERIACTIN TAB 4 MG PO SCH (05:12)
[2020-11-17] MEDS: VANCOMYCIN IV *PREMIX 1.25 G/250 ML BAG 1.25 G/250 ML PIGGYBACK IV SCH (05:13)
--- NOTE | 2020-11-17 06:49 | RAD ---
HISTORYCOVID PNEUMONIASTUDYCHEST, 1 [id number]/13/2021.TECHNIQUEAP view of the chestFINDINGSThe cardiac silhouette is stably enlarged. Mediastinal contours appear stable. Mild improvement in multifocal bilateral airspace opacities. Low lung volumes. No definite pleural effusion or pneumothorax.IMPRESSIONMild improvement in COVID pneumonia.Electronically signed by: John Corado (Nov 17, 2020 06:47:48)
[2020-11-17] MEDS ORDERED: LEXAPRO ONE (07:49)
[2020-11-17] MEDS: PULMICORT NEB TX 0.5 MG NEB SCH (08:25)
[2020-11-17] MEDS: BROVANA IN SCH (08:25)
[2020-11-17 08:53] LABS: ABG HCO3 32.7 mmol/L (22-26)
[2020-11-17] MEDS ORDERED: SOLU-Medrol 40 MG VIAL IVP SCH (09:00)
[2020-11-17] MEDS: VITAMIN D3 125 mcg (5,000 UNITS) PO SCH (09:56)
[2020-11-17] MEDS: LOVENOX INJ 120 MG SYR SC SCH (09:56)
[2020-11-17] MEDS: ACTOS PO SCH (09:57)
[2020-11-17] MEDS: DIFLUCAN PO SCH (09:57)
[2020-11-17] MEDS: KLONOPIN TAB 0.5 MG PO SCH (09:58)
[2020-11-17] MEDS: CYTOTEC PO SCH ×2 (09:59→14:00)
[2020-11-17] MEDS: GLUCOPHAGE XR 24-HR PO SCH (09:59)
[2020-11-17] MEDS: LIPITOR TAB 80 MG PO SCH (10:00)
[2020-11-17] MEDS: VITAMIN A PO SCH (10:00)
[2020-11-17] MEDS: PEPCID TAB 40 MG PO SCH (10:00)
[2020-11-17] MEDS: ZINC SULFATE PO SCH (10:00)
[2020-11-17] MEDS: LEXAPRO PO SCH (10:01)
[2020-11-17 10:36] LABS: BASOPHILS % (AUTO) 0.1 % (0.2-1.0); HEMATOCRIT 48.9 % (42.0-54.0); HEMOGLOBIN 15.9 g/dL (13.5-18.0); LYMPHOCYTES # (AUTO) 0.5 X10^3/uL (1.3-2.9); LYMPHOCYTES % (AUTO) 1.7 % (21.0-51.0); MEAN CORPUSCULAR HEMOGLOBIN 28.4 pg (27.0-34.0); MEAN CORPUSCULAR HGB CONC 32.4 g/dL (33.0-35.0); MEAN CORPUSCULAR VOLUME 87.6 fL (80.0-100.0); MEAN PLATELET VOLUME 8.3 fL (7.4-11.0); MONOCYTES # (AUTO) 1.4 x10^3/uL (0.3-0.8); MONOCYTES % (AUTO) 5.2 % (0.0-13.0); PLATELET COUNT 271 X10^3/uL (150.0-450.0); RED BLOOD COUNT 5.58 X10^6/uL (4.7-6.0); RED CELL DISTRIBUTION WIDTH 14.8 % (11.6-16.5); WHITE BLOOD COUNT 26.9 X10^3/uL (3.6-10.0)
[2020-11-17 10:48] LABS: ALANINE AMINOTRANSFERASE 79 Units/L (12-78); ALBUMIN 2.5 g/dL (3.4-5.0); ALKALINE PHOSPHATASE 69 Units/L (46-116); ASPARTATE AMINO TRANSFERASE 23 Units/L (15-37); BLOOD UREA NITROGEN 29 mg/dL (7-18); CALCIUM 7.3 mg/dL (8.5-10.1); CARBON DIOXIDE 30.5 mmol/L (21-32); CHLORIDE 105 mmol/L (98-107); COR CA(FOR HYPOALB) 8.5 mg/dL (8.5-10.1); CREATININE 0.91 mg/dL (0.70-1.30); SODIUM 140 mmol/L (136-145); TOTAL PROTEIN 5.3 g/dL (6.4-8.2); eGFR NON BLACK RACES > 60 (>60)
[2020-11-17 10:58] LABS: PLATELET MORPHOLOGY COMMENT NORMAL (NORMAL)
[2020-11-17] MEDS: TYGACIL 50 MG VIAL 50 MG in NS 100 ML IV 100 ML IV SCH (11:30)
[2020-11-17] MEDS ORDERED: PHARMACY COMMENT IV ONE (13:30)
[2020-11-17 13:39] VITALS: BP 155/64
[2020-11-23] MEDS ORDERED: TORADOL 15 MG VIAL ONE (10:23)
== END 2020-11-17 16:45 | disposition left against medical advice (07) | DRG 177 ==
LOC: OBS 22:06 → ER 22:06 → OBS 11-06 11:27 → MED/SURG 11-07 15:16
PROVIDERS: ADMIT Obstetrics & Gynecology Obstetrics; ATTEND Obstetrics & Gynecology Obstetrics